=== PATIENT | female | born 1975 | race Caucasian/White ===

== ENCOUNTER 2021-03-17 09:24 | Outpatient (CLI) | payer OTHER, MEDICAID, SELFPAY ==
--- NOTE | 2021-03-17 09:30 | ASPOS_PTH ---
PATIENT: CATHY SORTO LOC: LAB U#:[id number] AGE/SX: 45/F ROOM: RE03/17/[address]: Dr. Rickey Batres MD : 1975 BED: DIS: 03/17/2021 SPEC #: [id number] RECD: 03/17/21 10:30 STATUS: KHRIS SALLY #: [id number] LUIS: 03/17/21 09:[address]: Rickey Batres DEPT: CYTOLOGY RECD BY: Arleth Olmstead ENTERED: 03/17/21 13:28 SP TYPE: ASP HERE OTHR DR: No Primary Care Phys Tissues: Neck, NOS Procedures: Surgery Specimen Level IV Cytology Other Fine Needle Asp on Site HEADER OPERATION: Fine needle aspiration right neck mass PRE-OP DIAGNOSIS: Right neck mass TISSUE SUBMITTED: Right neck mass DIAGNOSIS CYTOLOGY Fine needle aspiration, right neck mass (smears and cell block): Consistent with benign mixed tumor salivary gland. AM:sandra 03/18/2021 COMMENT The specimen is evaluated at the time of FNA by Dr. Almanza. Immediate Evaluation = Consistent with benign mixed tumor of salivary gland. CYTOLOGY STUDY Slides are reviewed. CYTOLOGY GROSS Received is 0.2 ml of light tang material labeled with the patient's name, and designated right neck mass. Two imprints are made from the submitted fluid and the rest is added to CytoLyt for cell block preparation. Submitted for cytology study. / AM:sandra 03/17/2021 TC:5 CPT: 26911, 27556, 58101, 76850
== END 2021-03-17 23:59 | disposition short-term general hospital (02) ==
LOC: LAB 09:32
PROVIDERS: Referring Provider Otolaryngology; Visit Provider Otolaryngology
DX: D36.7 Benign neoplasm of other specified sites (principal)
CPT/HCPCS: 10021; 88161; 88305

== ENCOUNTER 2021-03-30 13:14 | Outpatient (CLI) | payer OTHER, MEDICAID, SELFPAY ==
--- NOTE | 2021-03-30 13:18 | CT_ITS ---
STUDY: CT SOFT TISSUE NECK WITH CONTRAST REASON FOR EXAM: Female, 45 years old. RIGHT NECK MASS RADIATION DOSAGE (If Supplied By Facility): CTDIvol = ( 18.12 ) mGy, DLP = ( 461.69 ) mGycm TECHNIQUE: The patient was scanned in a multi-detector CT scanner. High resolution transaxial imaging was performed following intravenous administration of IV 75mL Isovue-370. Sagittal and coronal images were reconstructed. Individualized dose optimization techniques were used for this CT. COMPARISON: None. FINDINGS: Normal bilateral parotid glands. Normal bilateral production leader spaces. Normal bilateral parapharyngeal spaces. Normal bilateral carotid spaces. Heterogeneous appearance of the right submandibular gland. There is a 1.2 cm x 1.1 cm x 1.6 cm rounded hypodense nodule in the posterior inferior aspect of the right submandibular gland. This corresponds to the patient''s palpable abnormality. Normal visualized nasopharynx. Normal retropharyngeal space. Normal perivertebral space. Normal visualized bilateral faucial tonsils. The visualized tongue, tongue base and oropharynx are normal. There are minimally enlarged lymph nodes of the neck, with preservation of normal wai architecture, consistent with a reactive lymph hyperplasia. There is no demonstrated solid or cystic mass lesion. There is no abnormal contrast enhancement. Normal epiglottis, bilateral vallecula and hypopharynx. The pre-epiglottic and paraglottic adipose spaces are normal. Normal visualized bilateral piriform sinuses, aryepiglottic folds, vocal cords, and arytenoid-cricoid articulations. Normal subglottic trachea. Normal bilateral lobes of the thyroid gland. Normal visualized pulmonary apices. Normal visualized paranasal sinuses. There is multilevel degenerative changes of the cervical spine. CT/Soft Tissue Neck WITH Contrast IMPRESSION: The palpable abnormality corresponds a 1.2 cm x 1.1 cm x 1.6 cm hypodense rounded soft tissue mass in the inferior aspect of the right submandibular gland. Electronically Signed: Yovani Cage MD at 14:05 EST , Service support ,
== END 2021-03-30 23:59 | disposition short-term general hospital (02) ==
LOC: CT 13:15
PROVIDERS: Referring Provider Otolaryngology; Visit Provider Otolaryngology
DX: R22.1 Localized swelling, mass and lump, neck (principal)
CPT/HCPCS: 70491; Q9967

== ENCOUNTER 2021-05-30 10:18 | Day surgery (SDC) | payer OTHER, MEDICAID, SELFPAY ==
[2021-05-30] VITALS (8 sets, daily range): BP systolic 121–136; BP diastolic 78–108; PULSE 64–76; RESP 15–16; TEMP 36.2–37.4; O2SAT 98–100; BMI 28.5
--- NOTE | 2021-05-30 | SUBM_PTH ---
PATIENT: CATHY SORTO LOC: [facility] U#:[id number] AGE/SX: 45/F ROOM: RE05/30/[address]: Dr. Rickey Batres MD : 1975 BED: DIS: 05/30/2021 SPEC #: [id number] RECD: 05/30/21 14:27 STATUS: KHRIS SALLY #: [id number] LUIS: 05/30/21 00:[address]: Rickey Batres DEPT: SURGICAL PATHOLOGY RECD BY: Arleth Olmstead ENTERED: 05/31/21 08:18 SP TYPE: SUBMAN ALEXANDRE COREAS DR: No Primary Care Phys Tissues: Salivary gland, NOS Procedures: Surgery Specimen Level V HEADER OPERATION: Submandibular gland excision PRE-OP DIAGNOSIS: Right neck mass TISSUE SUBMITTED: Right submandibular gland MICROSCOPIC DIAGNOSIS Right submandibular gland, excision: Adenoid cystic carcinoma, cribriform and tubular pattern. Margins negative for carcinoma See comment and synoptic report below. AM:sandra 06/07/2021 COMMENT MA[employer]OR [employer] SUMMARY: Procedure ? resection, submandibular gland Tumor focality - unifocal Tumor site ? submandibular gland Specimen laterality - right Tumor site: Greatest dimension ? 2 cm Additional dimension ? 1.4 x 1.3 cm Pre-existing pleomorphic adenoma component ? not present. Histologic type: Adenoid cystic carcinoma, tubular and cribriform pattern. High grade transformation ? not identified Macroscopic tumor extent ? no evidence of extra-parenchymal extension. Lymphvascular invasion ? not identified Perineural invasion ? present Margin status ? all margins are negative for carcinoma. Exact distance ? 1.0 mm form surgical margin. Regional lymph nodes ? not applicable (no regional lymph nodes submitted or found). Additional findings ? none identified PATHOLOGIC STAGE: pT1 Nx Mx The above summary is in compliance with [employer] Path[employer] (CAP) Cancer Protocols Checklist and [place] Joint Committee on Cancer (AJCC), Staging Manual, 8th ed. The lesion measures 2 x 1.4 cm in greatest dimension and appears to be completely contained within the salivary gland. The tumor shows frequent perineural invasion. Angiolymphatic invasion is not identified. The inked margins of resection are free of tumor. Reference is made to the patient's previous fine needle aspiration ([id number]) in which changes of benign mixed salivary gland tumor were identified. This case is seen in consultation with Dr. Montes De Oca of [facility] who concurs with the diagnosis. The consultative report is viewable in patient?s EMR. Case has been reviewed in consultation with Dr. Guerrero who concurs with the above diagnosis. IDC:SJ MICROSCOPIC DESCRIPTION Slides are reviewed. GROSS DESCRIPTION Received in fixative is one container labeled with the patient's name and designated right submandibular gland. The specimen consists of a piece of glandular tissue measuring 4.5 x 3.5 x 1.5 cm and weighing 12.7 gm. Serial sections reveal a tang, solid nodular round mass measuring 2 x 1.4 x 1.3 cm. Sections of the rest of the tissue reveal unremarkable cut surfaces. Associate Account Executive sections are submitted in six cassettes. The tumor mass is submitted in entirety and present in cassettes 1-6. / SJ:sandra 05/31/2021 The remainder of the specimen is submitted in cassettes 7-10. / AM:sandra 06/01/2021 TC:0 CPT: 27284
[2021-05-30] MEDS: Lactated Ringers 1,000 ML 15 ML IV (10:58)
--- NOTE | 2021-05-30 12:14 | PCM.DC ---
Discharge Instructions Diet Discharge Diet: No restrictions Activity Discharge Activity: Return to Normal Activity Dressing / Incision Additional Dressing/Incision Instructions:: gauze on thiago drain as needed Follow Up Care Please Follow Up With: Venkata Batres MD When: sunday morning Test Results: Test results from this visit will be discussed in further detail at your follow-up appointment, if applicable. Discharge Plan Admission Attending Provider: Venkata Batres Primary Care Provider: Care Physician,Alejandra Primary Discharge Orders/Prescriptions Prescriptions: No Action naproxen sodium [Aleve] 220 mg Tablet 220 mg PO BID PRN (Reason: Pain) RF: 0 Disposition Discharge Orders: Discharge Patient (Routine); Ordered 05/30/21 Ordered By: Dr. Venkata Batres
[2021-05-30] MEDS: Lidocaine 1% /Epi 1:100 (50ml) 50 ML VIAL (12:35)
--- NOTE | 2021-05-30 14:03 | PCM.OPRPT ---
Problems Associated Problem List Diagnoses (1) Submandibular gland mass: Report of Operation Date of Procedure: 05/30/21 Pre-Operative Diagnosis: right submandibular gland mass Post-Operative Diagnosis: right submandibular gland mass Surgery/Procedure Performed:: excision right submandibular gland Surgeon: Venkata Batres storage management consultant: Scott Henson Type of Anesthesia: General Description of Procedure: on the day of the procedure, after appropriate informed consent was obtained, she was brought to the operating room and placed in supine position on the operating table. she was placed under general endotracheal anesthesia by the anesthesiologist. the endotracheal tube was secured, the eyes were taped. the right neck was injected with lidocaine/epinephrine. the neck was prepped / draped in sterile fashion. a 3cm incision was made 2cm inferior to the mandibular border with a 15 blade. the platysma was divided with the 15 blade. subplatysmal flaps were raised bluntly superiorly and inferiorly. the inferior border of the gland was incised and the fascia was lifted off of the gland. this was taken superiorly; the anterior belly of the digastric muscle and mylohyoid were identified. the gland was circumferentially dissected. the facial artery, vein and submandibular duct were all cut and ligated with 3-0 silk free ties. the lingual nerve was identified and preserved; contributions to the nerve were cut and ligated. the gland was removed. care was taken to not violate the well-circumscribed adenoma in the gland. the defect was irrigated and a thiago was placed. the incision was closed with 4-0 vicryl and 6-0 nylon. scott henson md was scrubbed for the entire procedure and was critical in its completion.
== END 2021-05-30 23:59 | disposition home or self-care (01) ==
LOC: SDC 10:18 → AC 10:23
PROVIDERS: Referring Provider Otolaryngology; Visit Provider Otolaryngology
PROC: (CPT 42440; principal; 2021-05-30 11:30)
DX: C08.0 Malignant neoplasm of submandibular gland (principal); F17.210 Nicotine dependence, cigarettes, uncomplicated
CPT/HCPCS: 42440; 00100; 88307; J7120; J2405

== ENCOUNTER 2021-07-01 12:36 | Outpatient (RCR) | payer OTHER, MEDICAID, SELFPAY | END 2021-07-09 23:59 | LOC: NS 12:36 | PROVIDERS: Referring Provider Student in an Organized Health Care Education/Training Program; Visit Provider Student in an Organized Health Care Education/Training Program | DX: Z71.3 Dietary counseling and surveillance (principal); C08.9 Malignant neoplasm of major salivary gland, unspecified | CPT/HCPCS: 97802 ==

== ENCOUNTER → 2021-07-06 | Outpatient (CLI) | payer OTHER, MEDICAID, SELFPAY ==
--- NOTE | 2021-07-06 11:39 | SP.MBSS_ITS ---
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 The patient is planned for radiation therapy for ~6.5 weeks. No plans for PEG tube placement at this time. Patient referred for speech consult to assess the patient for dysphagia and manage swallow function during radiation treatment. She was determined to have swallow function WNL at bedside swallow evaluation on 07/01/2021. Speech therapy was recommended to implement prophylactic oropharyngeal exercise program to maintain optimal swallow function during and after radiation treatment. The patient was referred for MBS study to establish baseline of swallow function and objectively assess risk for aspiration. The patient is at increased risk for dysphagia, aspiration, weight loss, and malnutrition when undergoing radiation treatment. Current Diet Ordered: Regular textures / Thin liquids Dentition: WNL Mental Status: WNL Respiratory Status: Oxygenating on Room Air - Penetration-Aspiration Scale Penetration-Aspiration Scale: OBJECTIVE ASSESSMENT OF SWALLOW FUNCTION (QUANTITATIVE ? PER TRIAL): PENETRATION / ASPIRATION SCALE (SUAREZ): 1 = does not enter airway 2 = enters airway/above vocal folds/ejected 3 = enters airway/above vocal folds/not ejected 4 = enters airway/contacts vocal folds/ejected 5 = enters airway/contacts vocal folds/not ejected 6 = enters airway/below vocal folds/ejected 7 = enters airway/below vocal folds/not ejected despite effort 8 = enters airway/below vocal folds/no effort VIDEOFLOROSCOPIC SCALE SCORE (SUAREZ): Grade I = aspiration of material that has penetrated into the laryngeal vestibule, intact cough reflex Grade II = aspiration < 10 % of the bolus, intact cough reflex Grade III = aspiration of < 10 % of the bolus, reduced cough reflex or aspiration of > 10 % of the bolus, intact cough reflex Grade IV = aspiration of > 10 % of the bolus, reduced cough reflex - Penetration-Aspiration Scale Score Thin Liquid via teaspoon Result: 1= does not enter airway Thin Liquid via teaspoon Trial 2 Result: 1= does not enter airway Thin Liquid via large single sip from cup Result: 1= does not enter airway Thin Liquid via sequential sips from cup Result: 1= does not enter airway Halfway Thick Liquid via small single sip from cup Result: 1= does not enter airway Honey Thick Liquid via small single sip from cup Result: 1= does not enter airway Pudding via teaspoon with esophageal screen Result: 1= does not enter airway Cookie with esophageal screen Result: 1= does not enter airway Thin Liquid via single sip from straw Result: 1= does not enter airway Thin Liquid via sequential sips from straw Double swallow Result: 1= does not enter airway - Oral Phase Labial Seal: No Labial Escape Tongue Control During Bolus Hold: Posterior escape of greater than half of bolus Bolus Preparation/Mastication: Timely and efficient chewing and mashing Bolus Transport/Lingual Motion: Delayed initiation of tongue motion Oral Residue: Trace residue lining oral structures - Pharyngeal Phase Initiation of Pharyngeal Swallow: Bolus head in pyriforms Soft Palate Elevation: No bolus between soft palate and pharyngeal wall Laryngeal Elevation: Partial superior movement thyroid cart/partial apprx aryt- epig petiole Anterior Hyoid Excursion: Partial anterior movement Epiglottic Movement: Complete inversion Laryngeal Vestibule Closure at Height of Swallow: Complete; no air/contrast in laryngeal vestibule Pharyngeal Stripping Wave: Present - complete Pharyngoesophageal Segment Opening: Parital distension and partial duration; parital obstruction of flow Tongue Base Retraction: Trace column of contrast between tongue base & post. pharyngeal wall Pharyngeal Residue: Collection of residue within or on pharyngeal structures - Esophageal Phase Esophageal Clearance: Esophageal retention w/ retrograde flow through pharyngoesophageal seg - Treatment Strategies Effects of treatment strategies attemped:: Double swallows = not effective to clear trace pharyngeal residue resulting from contrast retaining in upper esophagus with retrograde flow through UES. - Diagnosis/Impression Diagnosis: Mild oropharyngeal dysphagia (R13.12) Impression: The oral phase is marked by delayed initiation of tongue movement for swallow onset, as well as posterior loss of greater than half of the bolus to the pyriforms prior to swallow onset. This premature posterior loss of bolus was most evident with thin liquids. The pharyngeal phase is marked by mildly decreased anterior hyoid excursion and laryngeal elevation; however, the patient achieved excellent epiglottic inversion and airway closure during the swallow. No laryngeal penetration or aspiration observed during the study. She has decreased UES opening/duration resulting in retention of thin liquid bolus in the upper esophagus with retrograde flow through the UES after the swallow. She additionally presented with mild esophageal retention of pudding in mid esophagus. She had retention of cookie in distal esophagus with retrograde flow to mid esophagus. - Recommendations Diet: Regular Textures, Thin Liquids Compensatory Strategies: Small Bites, Small Sips, Slow Rate, Sitting upright, Remain sitting upright for 30 minutes after PO intake Recommend Repeat Modified Barium Swallow: Yes Need for Skilled Speech Therapy Services: Yes Recommended Referrals: GI Consult - Plan to discuss concerns for reflux with ordering physician, Dr. Medeiros. Consider the patient for future GI consult vs. management with reflux training and precautions. Education Completed: 1. Described result of evaluation. - Status Active ST Patient: Active - Contact Information [facility] Speech Therapy:: Camryn Vieira M.A. [facility]-C[facility]ER COORDINATOR Speech-Language Pathologist [facility] [address] [place] [address] [phone] 07/06/21 11:49
== END | disposition home or self-care (01) ==
LOC: RAD 09:25
PROVIDERS: Referring Provider Student in an Organized Health Care Education/Training Program; Visit Provider Student in an Organized Health Care Education/Training Program
DX: C08.9 Malignant neoplasm of major salivary gland, unspecified (principal)
CPT/HCPCS: 74230; 77301; 77338; 92611

== ENCOUNTER 2021-07-24 18:05 | Emergency (ER) | payer OTHER, MEDICAID, SELFPAY ==
[2021-07-24] VITALS (8 sets, daily range): BP systolic 89–129; BP diastolic 59–93; PULSE 67–104; RESP 12–21; TEMP 37.6; O2SAT 93–98; BMI 29.4
--- NOTE | 2021-07-24 18:46 | EX.ED.UPPERE ---
HPI History of Present Illness Chief Complaint: Upper Extremity Injury Detail of Chief Complaint: Injury to left wrist Informant: patient Narrative Narrative: Patient presents the emergency department for injury to the left wrist that occurred prior arrival to emergency department. Patient states that she was walking on an embankment when she lost her balance and when she try to brace herself with her left arm she heard a crack in her wrist. Patient is right-hand dominant. She denies any other injuries. PFSH PFS Medical History Alcohol use Anemia Heartburn History of edema History of fracture of left ankle Hx of spinal cord injury Hypertension Injury of back Loss of hearing Marijuana use Migraine headache Smoker Syncope Home Medications naproxen sodium [Aleve] 220 mg PO BID PRN 05/23/21 [History Last Taken Unknown] MAGIC MOUTH WASH (BMX) 180 mL suspension 15 ml PO .qid PRN #180 ml 07/20/21 [Rx Last Taken Unknown] gabapentin 300 mg capsule 300 mg PO TID #112 cap 07/20/21 [Rx Last Taken Unknown] hydrocodone-acetaminophen 1 tab PO Q4H PRN PRN 2 Days #15 tablet 07/24/21 [Rx Last Taken Unknown] Allergy/AdvReac Type Severity Reaction Status Date / Time adhesive tape Allergy Rash Verified 07/24/21 18:06 morphine AdvReac Vomiting Verified 07/24/21 18:06 MALT Allergy Anaphylaxis Uncoded 07/24/21 18:06 Family History Grandmother Hypertension Surgical History Hx of hysterectomy Social History Smoking Status: Current every day smoker tobacco type: cigarettes ROS ROS ED Constitutional Constitutional ED: Reports systems reviewed and no addt'l complaints, except as documented; Denies body ache(s), change in weight or chills Eyes Eyes: Denies acute decrease in peripheral vision, change in vision, double vision or loss of vision ENT ENT ED: Reports none; Denies ear pain, lip swelling, loss taste/smell, neck pain, otalgia or sore throat Cardiovascular Cardiovascular: Reports none; Denies abdominal pain, chest pain with activity, leg edema, lightheadedness, palpitations, rapid heart rate or syncope Respiratory/Chest Respiratory/Chest: Reports none; Denies change in mental status, dry cough, dyspnea, hemoptysis, shortness of breath at rest or shortness of breath with exertion Gastrointestinal Gastrointestinal: Reports none; Denies abdominal pain, change in stool character, diarrhea, hematemesis, hematochezia, melena, rectal bleeding or vomiting Genitourinary Genitourinary ED: Reports none; Denies abdominal discomfort, anuria, dysuria, genital pain or polyuria Musculoskeletal Musculoskeletal: Reports none and other Details: Left wrist pain/injury ; Denies arthralgias, back pain, difficulty walking, extremity pain, muscle weakness or myalgias Integumentary Reports none; Denies abscess or rash Neurologic Neurologic: Reports none; Denies abnormal gait, confusion, focal weakness, frequent falls, headache(s), loss of vision, numbness, paresthesias, radicular pain, vertigo or weakness Psychiatric Psychiatric: Reports systems reviewed and no addt'l complaints, except as documented and none; Denies behavioral changes, confusion, difficulty concentrating, hallucinations, suicidal ideation, tactile hallucinations or visual hallucinations Endocrine Endocrinology: Denies none, cold intolerance, excessive sweating, fatigue or heat intolerance Hematologic/Lymphatic Hematologic/Lymphatic: Reports none; Denies anemia, easy bleeding or easy bruising Allergic/Immunologic Allergic/Immunologic ED: Denies as per HPI, none, lip swelling, mouth swelling, throat swelling, tongue swelling or hives EXAM Physical Exam Const Vital Signs: 07/24/21 18:05 Temperature 99.7 F H Temperature Source Temporal Pulse Rate 104 H Respiratory Rate 18 Blood Pressure 129/78 H Blood Pressure Mean 95 Pulse Ox 97 Oxygen Delivery Method Room Air Positive well nourished and well developed General Appearance ED: well developed and NAD HEENT Reports TM's clear and moist mucous membranes normocephalic and atraumatic; Negative for trauma or tenderness Tympanic Membrane ED: Yes TM's clear Eyes PERRL and EOMs intact bilaterally General Eye ED: Negative for pale conjunctiva or scleral icterus Neck no lymphadenopathy, supple and no JVD General: Negative for tenderness Chest Wall inspection of chest normal and palpation of chest normal Chest: Negative for tenderness Resp normal respiratory effort and clear to auscultation bilaterally Effort and Inspection: Negative for respiratory distress or pain with movement Auscultation: Negative for rhonchi, wheezes or diminished lung sounds Cardio regular rate, regular rhythm, S1 normal heart sound, S2 normal heart sound and no murmurs Peripheral Pulses: pulses 2+ throughout GI normal to inspection, nondistended, normoactive bowel sounds, soft to palpation, non-tender, non-distended and no masses Back/Spine no CVA tenderness and no thoracic nor lumbar tenderness Extremity Extremity Narrative: Evaluation of the left wrist reveals diffuse soft tissue swelling. Patient has tenderness over the distal radius. There are some faint ecchymosis. She is neurovascular intact distally. No pain at the elbow. No pain at the hand. General Extremety ED: Negative for edema General Extremity: Negative for edema Neuro oriented x3, CN's II-XII intact bilaterally, no sensory deficits noted and gait normal Sensorium / Orientation: awake, alert, oriented to person, oriented to place and oriented to time Motor Exam: strength 5/5 throughout and strength abnormal Psych mental status grossly normal Skin no rashes or lesions noted and no wounds MDM MDM MDM Narrative Medical decision making narrative: Patient had x-rays of the right wrist initially interpreted by myself as a fracture of the distal radius with some mild displacement and loss of volar tilt. I discussed case with orthopedic surgeon on-call Dr. Menard who recommended attempting to reduce this further. Patient had an IV line established and was medicated with Dilaudid 1 mg IV. She was consented for procedural sedation with propofol. Patient received a total of 140 mg of propofol with good sedation. I was able to reduce the fracture further and splint the patient. Post reduction films obtained interpreted by myself as improved alignment and reduction. Official report from radiology pending. Patient was placed in a AP splint fabricated by myself. Total sedation time of 20 minutes. Patient was placed in a sling. Patient will be given a prescription for [place] for pain. She is to follow-up with Dr. Menard in the office in 3 to 5 days. Patient neurovascularly intact after splint placement. Lab Data Attestation: I reviewed the patient's lab results. Discharge Plan Triage Chief Complaint: Upper Extremity Injury ED Provider: Dillan Stephens Dx/Rx/DC Orders Clinical Impression: Colles' fracture of left radius Instructions: ED Colles Fracture, Reduction Required Prescriptions: New hydrocodone-acetaminophen [hydrocodone-acetaminophen] 1 TABLET tablet 1 tab PO Q4H PRN PRN (Reason: Pain) 2 Days Qty: 15 RF: 0 No Action gabapentin 300 mg capsule 300 mg PO TID Qty: 112 RF: 5 MAGIC MOUTH WASH (BMX) 180 mL suspension 15 ml PO .qid PRN (Reason: mucositis) Qty: 180 RF: 5 naproxen sodium [Aleve] 220 mg Tablet 220 mg PO BID PRN (Reason: Pain) RF: 0 Primary Care Provider: Care Physician,No Primary Referrals: Dontrell Menard MD [STAFF PHYSICIAN] - 3-5 Days Care Physician,No Primary [Primary Care Provider] - Disposition Disposition: Home, Self Care
--- NOTE | 2021-07-24 18:50 | RAD_ITS ---
INDICATION: injury EXAMINATION/TECHNIQUE: X-RAY - LEFT XR Wrist Min 3 Views 3 VIEWS COMPARISON: None. FINDINGS: SOFT TISSUES: No soft tissue swelling or gas. No radiopaque foreign body. BONES/JOINTS: Minimally impacted and minimally dorsally angulated fracture of the distal radius. Articular surfaces appear intact. Carpal rows are intact. The distal radial ulnar joint also appears to be intact. RAD/Wrist min 3 Views IMPRESSION: 1. Impacted minimally angulated distal radial fracture. Joint spaces are maintained. 2. No other fractures noted. Electronically Signed: Jai Rosales MD at 20:03 EDT ,
[2021-07-24] MEDS: HYDROmorphone 1 MG/ML Syringe IV ×2 (19:43→20:50)
[2021-07-24] MEDS: Ondansetron 4 MG/2 ML Vial IV (19:43)
[2021-07-24] MEDS: Propofol 200 MG/20 ML Vial IV BOLUS (20:41)
--- NOTE | 2021-07-24 21:00 | RAD_ITS ---
INDICATION: post reduction EXAMINATION/TECHNIQUE: X-RAY - LEFT XR Wrist Min 3 Views 6 VIEWS COMPARISON: Left wrist x-rays from earlier the same evening. FINDINGS: SOFT TISSUES: Soft tissue swelling. No radiopaque foreign body. BONES/JOINTS: Again seen extra-articular, transverse fracture distal radial metaphysis with interval decrease in the loss of normal volar tilt of the distal radius now with near anatomic alignment. Preservation of the joint space and no degenerative bony proliferative changes. No sclerotic or destructive changes observed. RAD/Wrist min 3 Views IMPRESSION: Again seen extra-articular, transverse fracture distal radial metaphysis with interval decrease in the loss of normal volar tilt of the distal radius now with near anatomic alignment. Electronically Signed: Jaden Graf DO at 22:28 EDT ,
== END 2021-07-24 21:55 | disposition home or self-care (01) ==
PROVIDERS: Emergency Provider Emergency Medicine; Visit Provider Emergency Medicine
DX: S52.532A Colles' fracture of left radius, initial encounter for closed fracture (principal); I10 Essential (primary) hypertension; F17.210 Nicotine dependence, cigarettes, uncomplicated; W17.81XA Fall down embankment (hill), initial encounter; Y93.01 Activity, walking, marching and hiking
CPT/HCPCS: 25600; 73110; 96374; 96375; 96376; 99284; J7030; A4216; J2405

== ENCOUNTER → 2021-12-12 | Outpatient (CLI) | payer OTHER, MEDICAID, SELFPAY ==
--- NOTE | 2021-12-12 13:32 | SP.MBSS_ITS ---
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 The patient underwent radiation therapy for ~6.5 weeks.?Baseline MBS completed 07/06/21 which revealed mild oropharyngeal dysphagia (R13.12) w/ recommendation for regular textures/thin liquids, small bites/sips, slow rate, seated upright during and for 30 minutes after intake. The patient reports that her saliva production has returned to normal and that she is eating and drinking without difficulty. Odynophagia has resolved w/ the exception of spicy food consumption. Dysgeusia has resolved w/ the exception of chocolate consumption. Denies completion of any prophylactic swallowing exercises, stating that her saliva has returned and she is regularly swallowing. Current Diet Ordered: Regular Textures/Thin Liquids Dentition: WNL Mental Status: WNL Respiratory Status: Oxygenating on Room Air - Penetration-Aspiration Scale Penetration-Aspiration Scale: OBJECTIVE ASSESSMENT OF SWALLOW FUNCTION (QUANTITATIVE ? PER TRIAL): PENETRATION / ASPIRATION SCALE (SUAREZ): 1 = does not enter airway 2 = enters airway/above vocal folds/ejected 3 = enters airway/above vocal folds/not ejected 4 = enters airway/contacts vocal folds/ejected 5 = enters airway/contacts vocal folds/not ejected 6 = enters airway/below vocal folds/ejected 7 = enters airway/below vocal folds/not ejected despite effort 8 = enters airway/below vocal folds/no effort VIDEOFLOROSCOPIC SCALE SCORE (SUAREZ): Grade I = aspiration of material that has penetrated into the laryngeal vestibule, intact cough reflex Grade II = aspiration < 10 % of the bolus, intact cough reflex Grade III = aspiration of < 10 % of the bolus, reduced cough reflex or aspiration of > 10 % of the bolus, intact cough reflex Grade IV = aspiration of > 10 % of the bolus, reduced cough reflex - Penetration-Aspiration Scale Score Thin Liquid via teaspoon Result: 1= does not enter airway Thin Liquid via teaspoon Trial 2 Result: 1= does not enter airway Thin Liquid via small single sip from cup Result: 1= does not enter airway Thin Liquid via sequential sips from cup Result: 2= enter airway/above vocal folds/ejected Thin Liquid via single sip from straw Result: 1= does not enter airway Pudding Result: 1= does not enter airway Cookie Result: 1= does not enter airway Thin Liquid via small single sip from cup Trial 2 Result: 1= does not enter airway - Oral Phase Labial Seal: No Labial Escape Tongue Control During Bolus Hold: Cohesive bolus between tongue to palatal seal Bolus Preparation/Mastication: Timely and efficient chewing and mashing Bolus Transport/Lingual Motion: Delayed initiation of tongue motion Oral Residue: Trace residue lining oral structures - Pharyngeal Phase Initiation of Pharyngeal Swallow: Bolus head in pyriforms Soft Palate Elevation: No bolus between soft palate and pharyngeal wall Laryngeal Elevation: Partial superior movement thyroid cart/partial apprx aryt- epig petiole Anterior Hyoid Excursion: Partial anterior movement Epiglottic Movement: Complete inversion Laryngeal Vestibule Closure at Height of Swallow: Complete; no air/contrast in laryngeal vestibule Pharyngeal Stripping Wave: Present - complete Pharyngoesophageal Segment Opening: Complete distension and complete duration; no obstruction of flow Tongue Base Retraction: Trace column of contrast between tongue base & post. pharyngeal wall Pharyngeal Residue: Trace residue within or on pharyngeal structures - Esophageal Phase Esophageal Clearance: Esophageal retention - Diagnosis/Impression Diagnosis: mild oropharyngeal dysphagia (R13.12) Impression: The oral phase is characterized by: * delayed initiation of lingual motion for swallow onset * spillage of liquids to the aryepiglottic folds and/or pyriform sinuses prior to swallow onset The pharyngeal phase is characterized by: * delayed pharyngeal swallow onset w/ the leading edge of liquid boluses reaching the aryepiglottic folds and/or pyriform sinuses prior to swallow onset * reduced anterior hyoid movement * laryngeal vestibule penetration occurred w/ sequential swallows of thin liquid only w/ pharyngeal spillage and penetration occurring prior to swallow onset * penetration was above the vocal folds and laryngeal vestibule closure was sufficient to eject the penetration from the vestibule The esophageal phase is characterized by: * trace retention of contrast below the PES without retrograde bolus flow * screening for esophageal clearance was unremarkable Diet Recommended: * Regular Texture (IDDSI: 7) * Thin Liquid (IDDSI: 0) Compensatory Strategies Recommended: * Small bites * Small sips, avoiding sequential intake of liquids * Slow rate of intake * Sit upright w/ hip flexion at 90 degrees during PO intake? * Remain seated upright for 30-60 minutes after PO intake (GERD precautions) Additional Speech Therapy Services Recommended: * Patient able to comprehend and express understanding of recommended intake precautions detailed above with sufficient detail to suggest high likelihood of compliance. No further skilled speech-language services warranted at this time targeting dysphagia. Repeat MBS Recommended: * Recommend repeat MBS in 6-12 months. - Recommendations Education Completed: 1. Described result of evaluation., 2. Pt understands evaluation & agrees with goals and treatment plan. - Status Active ST Patient: Active - Contact Information [facility] Speech Therapy:: Minal Hurtado M.A., CCC-DIRECTOR TARGETED MARKETING [facility] [address] [place], [place] [id number] [phone] [email or web address]
== END | disposition home or self-care (01) ==
LOC: RAD 12:49
PROVIDERS: PCP Internal Medicine; Referring Provider Student in an Organized Health Care Education/Training Program; Visit Provider Student in an Organized Health Care Education/Training Program
DX: C08.9 Malignant neoplasm of major salivary gland, unspecified (principal)
CPT/HCPCS: 74230; 92611

== ENCOUNTER 2021-12-13 10:12 | Outpatient (RCR) | payer OTHER, MEDICAID, SELFPAY ==
--- NOTE | 2021-12-13 12:48 | HP.OTEVAL_ITS ---
Patient's Visit Information CATHY SORTO is a 46 year old F, referred to Occupational Therapy by Dr. Mauri Medeiros DO, with a diagnosis of lymphedema. Date of Evaluation: 12/13/21 Occupational Therapist: Melissa Quiroga, OTR/Derik, CHT - Subjective This 46 year old female was seen for OT eval with dx of lymphedema, H&N Lymphedema s/p parotidectomty and adjuvant radiation therapy. pt was had her initial sx May 29. June dx with cancer - Radiation July and completed 33 visits-. pt reports swelling in right side of her face and neck-initiated about 3-4 weeks. pt states more uncomfortable in morning and almost painful-. pt would like to know what she can dot to mtg. her swelling on the right side of her chin/neck. - Pain neck/face 3 - Goals Demonstrate a 20% reduction in edema by d/c: Yes Demonstrate adequate knowledge of self-massage by 2nd week: Yes Demonstrate adequate knowledge skin care/prec by 2nd week: Yes Demonstrate adequate knowledge therapeutic exercises by d/c: Yes Select approp compression garment w/donning/care/wear by d/c: Yes Voice need to replace compression garment every 4-6mo by dc: Yes - Rehabilitation General Assessment: s/p parotidectomy and adjuvant radiation -pt arrives with swelling on right side of jaw line and chin- pt would benefit from skilled OT services 2-3 visits to ed. pt on life long mtg of lymphedema, self manual lymph massage, compression devices and exercise. Pt would benefit from home flexitouch unit to ensure lymphatic drainage. Rehabilitation Potential: Good - Anticipated Interventions Education re Diagnosis, Manual Lymph Drainage, Education re Life-long lymphedema Management, Education re Skin Care and Precautions, Education re Self Massage Techniques, Education re Correct Donning Tech,Care&Wearing Sched Comp Garments, Caregiver Training, Home Program - Visit Plan TEXT: Thank you for the opportunity to evaluate your patient. For Medicare and Medicare HMO plans, please review the plan of care and approve it. It will need to be FAXED BACK to us at [phone] for Medicare purposes. Please let me know if there are questions or concerns regarding this plan of care. Physician Signature: Date:
--- NOTE | 2022-02-09 12:47 | HP.OT.NRP ---
CATHY SORTO was seen in my office for initial evaluation on 12/13/21. The following Plan of Care was established for this patient: Anticipated Interventions: Education re Diagnosis, Manual Lymph Drainage, Education re Life-long lymphedema Management, Education re Skin Care and Precautions, Education re Self Massage Techniques, Education re Correct Donning Tech,Care&Wearing Sched Comp Garments, Caregiver Training, Home Program This patient was last seen in our office 12/13/21. Pertinent comments regarding their Occupational therapy will appear below: pt was seen for initial OT eval only- no further apts. scheduled at this time and due to time lapse in services pt d/c. At this point I will be discontinuing this patient from occupational therapy. I would be happy to see this patient again in the future if found appropriate by the physician. Thank you! Melissa Quiroga, OTR/L, CHT
== END 2021-12-13 19:00 | disposition home or self-care (01) ==
LOC: OT 10:12
PROVIDERS: PCP Internal Medicine; Referring Provider Student in an Organized Health Care Education/Training Program; Visit Provider Student in an Organized Health Care Education/Training Program
DX: I89.0 Lymphedema, not elsewhere classified (principal)
CPT/HCPCS: 97166; 97530

== ENCOUNTER → 2021-12-22 | Outpatient (CLI) | payer OTHER, MEDICAID, SELFPAY ==
--- NOTE | 2021-12-22 12:06 | BI_ITS ---
MAMMOGRAPHY - BILATERAL SCREENING REASON FOR EXAM: Female, 46 years old. Routine annual screening examination. PERTINENT HISTORY: Non-contributory. Occasional bilateral green nipple discharge. TECHNIQUE: Digital bilateral breast ejsús (3D mammographic acquisition) in the CC and MLO projections. 2-D mediolateral oblique (MLO) and craniocaudad (CC) views of both breasts were obtained. CAD: Full Field Digital Mammography with Computer Added Detection was performed. COMPARISON: None. Baseline examination. FINDINGS: Breast Composition: There are scattered areas of fibroglandular density. There are no dominant masses or suspicious calcifications. No other significant abnormalities are identified. BI/SCRN MAMM (CAD)W/JESÚS BILAT IMPRESSION: Negative screening mammogram. Yearly followup mammogram recommended. (A) ASSESSMENT CATEGORY: BIRADS Category 1: Negative. A letter regarding these results will be sent to the patient by the facility within 30 days. Approximately 10% of breast cancers are not detected by mammography. A normal mammogram should not delay biopsy of a clinically suspicious abnormality. [id number] Electronically Signed: Yovani Cage MD at 12:44 EDT ,
== END | disposition home or self-care (01) ==
PROVIDERS: PCP Internal Medicine; Visit Provider Internal Medicine
DX: Z12.31 Encounter for screening mammogram for malignant neoplasm of breast (principal); N64.52 Nipple discharge
CPT/HCPCS: 77063; 77067

== ENCOUNTER → 2022-04-21 | Outpatient (CLI) | payer BC, SELFPAY ==
[2022-04-21 15:08] LABS: Absolute Lymphocyte Count 1.19 X10^3/uL (0.83-4.51); Basophil# 0.05 X10^3/uL; Eosinophil# 0.09 X10^3/uL; Eosinophils% 1.8 % (0-5); Hematocrit 42.6 % (37-47); Hemoglobin 13.4 g/dL (12.0-15.0); Lymphocyte # 1.19 X10^3/ul (0.83-4.51); Lymphocyte % 23.4 % (19-41); Mean Corp Hgb Conc 31.5 g/dL (32-36); Mean Corpuscular Hgb 31.6 pg (27.0-32.0); Mean Corpuscular Volume 100.5 fL (81-99); Mean Platelet Vol. 10.9 fl (6.2-12.0); Monocyte# 0.72 X10^3/uL; Monocyte% 14.1 % (0-10); NRBC Flagged by Analyzer 0 % (0-5); Neutrophil # 3.03 X10^3/uL (2.7-7.7); Neutrophil % 59.5 % (47-70); Platelet Count 207 K/mm3 (150-450); RBC Distribution Width CV 13.3 % (11.6-14.6); RBC Distribution Width SD 49.2 fl (35.1-43.9); Red Blood Count 4.24 M/mm3 (4.2-5.4); White Blood Count 5.1 K/mm3 (4.4-11.0)
[2022-04-21 15:38] LABS: ALB/GLOB Ratio 1.1 RATIO (0.9-2.4); AST(SGOT) 31 U/L (15-37); Alanine Aminotransfer ALT/SGPT 40 U/L (13-56); Albumin, Serum 3.8 g/dL (3.2-5.0); Alkaline Phosphatase 65 U/L (45-117); Anion Gap 6 (5-15); BUN 12 mg/dL (7-18); BUN/Creat Ratio 15.2 RATIO (10-20); Calcium,Total 8.6 mg/dL (8.5-10.1); Chloride 109 mmol/L (98-107); Cholesterol 209 mg/dL (200); Creatinine, Serum 0.79 mg/dL (0.55-1.02); EST Glomerular Filtration Rate 83 mL/min (>60); Est Glom Filt Rate - Afr Amer 100 mL/min (>60); Globulin 3.5 g/dL (2.2-4.2); Glucose 78 mg/dL (74-106); High Density Lipoprotein 91 mg/dL; Potassium 4.2 mmol/L (3.5-5.1); Protein, Total 7.3 g/dL (6.4-8.2); Sodium Level 141 mmol/L (136-145); Thyroid Stim Hormone (TSH) 1.56 uIU/mL (0.358-3.74); Triglycerides 58 mg/dL; Very Low Density Lipoprotein 12 mg/dL (5-40)
== END | disposition home or self-care (01) ==
LOC: BIMLAB 11:59
PROVIDERS: PCP Internal Medicine; Referring Provider Internal Medicine; Visit Provider Internal Medicine
DX: C08.9 Malignant neoplasm of major salivary gland, unspecified (principal); R12 Heartburn; Z13.6 Encounter for screening for cardiovascular disorders
CPT/HCPCS: 36415; 80053; 80061; 84443; 85025

== ENCOUNTER → 2022-11-27 | Outpatient (CLI) | payer BC, SELFPAY ==
--- NOTE | 2022-11-27 13:38 | ST.MBS ---
Modified Barium Swallow Patient Information Study Date: 11/27/22 Study Time: 13:00 Direct Billable Minutes: 80 Total Minutes procedure & reportin Diagnosis: Adenoid Cystic Carsinoma of Salivary Gland (C08.9) Referring Physician: Mauri Medeiros Reason for Referral: Repeat MBS recommended to objectively assess swallow function, risk for aspiration, and determine recommendations for least restrictive diet textures and compensatory strategies to improve safety of swallow. 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 The patient underwent radiation therapy for ~6.5 weeks.?Baseline MBSS completed 07/06/21 which revealed mild oropharyngeal dysphagia (R13.12) w/ recommendation for regular textures/thin liquids, small bites/sips, slow rate, seated upright during and for 30 minutes after intake. Most recent MBSS completed 12/12/21 which again revealed mild oropharyngeal dysphagia w/ recommendation for regular textures and thin liquids, small bites/sips, avoiding sequential intake of liquids, slow rate of intake, and seated upright during and for 30 minutes after intake. Patient reports very mild xerostomia which is only bothersome if trying to eat dry crackers. Denies any odynophagia, dysgeusia, difficulty chewing/swallowing or recent PNA since prior MBSS. Pt reports that she completes neck stretches most mornings. Current Diet Ordered: Regular/Thin Dentition: WNL Mental Status: WNL Respiratory Status: Oxygenating on Room Air Penetration-Aspiration Scale Penetration-Aspiration Scale: OBJECTIVE ASSESSMENT OF SWALLOW FUNCTION (QUANTITATIVE ? PER TRIAL): PENETRATION / ASPIRATION SCALE (SUAREZ): 1 = does not enter airway 2 = enters airway/above vocal folds/ejected 3 = enters airway/above vocal folds/not ejected 4 = enters airway/contacts vocal folds/ejected 5 = enters airway/contacts vocal folds/not ejected 6 = enters airway/below vocal folds/ejected 7 = enters airway/below vocal folds/not ejected despite effort 8 = enters airway/below vocal folds/no effort VIDEOFLOROSCOPIC SCALE SCORE (SUAREZ): Grade I = aspiration of material that has penetrated into the laryngeal vestibule, intact cough reflex Grade II = aspiration < 10 % of the bolus, intact cough reflex Grade III = aspiration of < 10 % of the bolus, reduced cough reflex or aspiration of > 10 % of the bolus, intact cough reflex Grade IV = aspiration of > 10 % of the bolus, reduced cough reflex Penetration-Aspiration Scale Score Thin Liquid via teaspoon: Result: 1= does not enter airway Thin Liquid via teaspoon Trial 2: Result: 1= does not enter airway Thin Liquid via cup: Result: 2= enter airway/above vocal folds/ejected Thin liquid sequential swallows via cup: Result: 2= enter airway/above vocal folds/ejected Thin Liquid via single sip from straw: Result: 1= does not enter airway Pudding: Result: 1= does not enter airway Cookie: Result: 1= does not enter airway Thin liquid via cup Trial 2: Result: 1= does not enter airway Oral Phase Labial Seal: No Labial Escape Tongue Control During Bolus Hold: Cohesive bolus between tongue to palatal seal Bolus Preparation/Mastication: Timely and efficient chewing and mashing Bolus Transport/Lingual Motion: Slowed tongue motion Oral Residue: Trace residue lining oral structures Pharyngeal Phase Initiation of Pharyngeal Swallow: Bolus head in pyriforms Soft Palate Elevation: No bolus between soft palate and pharyngeal wall Laryngeal Elevation: Partial superior movement thyroid cart/partial apprx aryt-epig petiole Anterior Hyoid Excursion: Partial anterior movement Epiglottic Movement: Complete inversion Laryngeal Vestibule Closure at Height of Swallow: Complete; no air/contrast in laryngeal vestibule Pharyngeal Stripping Wave: Present - complete Pharyngoesophageal Segment Opening: Complete distension and complete duration; no obstruction of flow Tongue Base Retraction: Trace column of contrast between tongue base & post. pharyngeal wall Pharyngeal Residue: Trace residue within or on pharyngeal structures Esophageal Phase Esophageal Clearance: Esophageal retention Diagnosis/Impression Diagnosis: Mild oropharyngela dysphagia (R13.12) Impression: The oral phase is characterized by: -adequate labial seal w/ no anterior bolus loss -good bolus cohesion w/out loss to floor of mouth or posteriorly during cued oral holding -mildly slowed lingual motion for A-P bolus transportation The pharyngeal phase is characterized by: -suboptimal bolus location upon swallow onset w/ leading edge of liquid boluses reaching the pyriforms prior to swallow onset -reduced anterior hyoid movement and thyroid elevation -transient laryngeal vestibule penetration before/during the swallow w/ complete ejection/complete laryngeal vestibule closure at the height of swallow -trace pyriform residue retention post-prandially The esophageal phase is marked by: -esophageal retention of contrast noted when screening for clearance Swallow function remains essentially unchanged since prior MBSS in 2021. Recommendations Diet: Regular Textures and Thin Liquids Compensatory Strategies: Small Bites, Small Sips, Sitting upright and Remain sitting upright for 30 minutes after PO intake Recommend Repeat Modified Barium Swallow: Yes Comment: Recommend a repeat MBSS in 12 months. Need for Skilled Speech Therapy Services: No Education Completed: 1. Described result of evaluation. and 2. Pt understands evaluation & agrees with goals and treatment plan. Status Active ST Patient: Active Contact Information [facility] Speech Therapy:: Minal Hurtado M.A., CCC-ASSOCIATE SALES REPRESENTATIVE Speech-Language Pathologist [facility] [address] [place] [address] [email or web address] [phone]
== END | disposition home or self-care (01) ==
LOC: RAD 12:54
PROVIDERS: PCP Internal Medicine; Referring Provider Student in an Organized Health Care Education/Training Program; Visit Provider Student in an Organized Health Care Education/Training Program
DX: C08.9 Malignant neoplasm of major salivary gland, unspecified (principal)
CPT/HCPCS: 74230; 92611

== ENCOUNTER → 2023-01-03 | Outpatient (CLI) | payer BC, SELFPAY ==
[2023-01-03 14:50] LABS: Bacteria 0 SEEN /hpf (None Seen); Mucous, Urine 0 SEEN /hpf (<or=2+); Red Blood Cells-Urine 0 SEEN /hpf (0-5); White Blood Cells 0 SEEN /hpf (0-5)
[2023-01-03 17:34] LABS: Color, Urine Yellow (Yellow); Glucose, Dipstick Normal (Normal); Ketone-Dipstick Negative (Negative); Leukocyte Esterase-Dipstick Negative /ul (Negative); Nitrite-Dipstick Negative (Negative); Occult Blood-Urine Negative /ul (Negative); Protein-Dipstick Negative (Negative); Specific Gravity, Urine 1.015 (1.002-1.030); Urine Bilirubin Dipstick Negative (Negative); Urine Clarity Clear (Clear); Urine Urobilinogen Normal (Normal)
[2023-01-03 17:39] LABS: Absolute Lymphocyte Count 0.96 X10^3/uL (0.83-4.51); Absolute Neutrophil Count 3.5 X10^3/uL (2.0-7.7); Basophil# 0.03 X10^3/uL; Basophil% 0.6 % (0-1); Eosinophil# 0.05 X10^3/uL; Hematocrit 42.5 % (37-47); Lymphocyte # 0.96 X10^3/ul (0.83-4.51); Lymphocyte % 18.4 % (19-41); Mean Corp Hgb Conc 30.6 g/dL (32-36); Mean Corpuscular Hgb 31.7 pg (27.0-32.0); Mean Corpuscular Volume 103.7 fL (81-99); Mean Platelet Vol. 11.4 fl (6.2-12.0); Monocyte# 0.72 X10^3/uL; Monocyte% 13.8 % (0-10); NRBC Flagged by Analyzer 0 % (0-5); Neutrophil # 3.45 X10^3/uL (2.7-7.7); Neutrophil % 65.8 % (47-70); Platelet Count 209 K/mm3 (150-450); RBC Distribution Width CV 13.1 % (11.6-14.6); RBC Distribution Width SD 50.4 fl (35.1-43.9); White Blood Count 5.2 K/mm3 (4.4-11.0)
[2023-01-03 18:07] LABS: AST(SGOT) 21 U/L (15-37); Alanine Aminotransfer ALT/SGPT 46 U/L (13-56); Albumin, Serum 3.6 g/dL (3.2-5.0); Alkaline Phosphatase 63 U/L (45-117); Anion Gap 6 (5-15); BUN 12 mg/dL (7-18); BUN/Creat Ratio 13.7 RATIO (10-20); CPK Total, Creatine Kinase 102 U/L (26-192); Calcium,Total 8.9 mg/dL (8.5-10.1); Chloride 108 mmol/L (98-107); Creatinine, Serum 0.88 mg/dL (0.55-1.02); EST Glomerular Filtration Rate 73 mL/min (>60); Est Glom Filt Rate - Afr Amer 88 mL/min (>60); Globulin 3.7 g/dL (2.2-4.2); Glucose 75 mg/dL (74-106); Magnesium 2.2 mg/dL (1.6-2.6); Potassium 3.5 mmol/L (3.5-5.1); Protein, Total 7.3 g/dL (6.4-8.2); Sodium Level 141 mmol/L (136-145)
[2023-01-03 18:28] LABS: Squamous Epithelial Cells - UA 0-5 SEEN /hpf (5-10)
[2023-01-04 10:05] LABS: Vitamin B12 240 pg/mL (211-911); Vitamin D,25 Hydroxy 14.8 ng/mL
== END | disposition home or self-care (01) ==
LOC: BIMLAB 14:48
PROVIDERS: PCP Internal Medicine; Referring Provider Internal Medicine; Visit Provider Internal Medicine
DX: D75.89 Other specified diseases of blood and blood-forming organs (principal); R25.2 Cramp and spasm; R10.9 Unspecified abdominal pain
CPT/HCPCS: 36415; 80053; 81001; 82306; 82550; 82607; 82746; 83735; 85025

== ENCOUNTER → 2023-01-18 | Outpatient (CLI) | payer BC, SELFPAY ==
--- NOTE | 2023-01-18 10:34 | BI_ITS ---
MAMMOGRAPHY - BILATERAL SCREENING REASON FOR EXAM: Female, 47 years old. Routine annual screening examination. PERTINENT HISTORY: Non-contributory. TECHNIQUE: Digital bilateral breast jesús (3D mammographic acquisition) in the CC and MLO projections. 2-D mediolateral oblique (MLO) and craniocaudad (CC) views of both breasts were obtained. CAD: Full Field Digital Mammography with Computer Added Detection was performed. COMPARISON: Comparison is made with prior study December 22, 2021. FINDINGS: Breast Composition: There are scattered areas of fibroglandular density. There are no dominant masses or suspicious calcifications. Stable small benign-appearing bilateral axillary lymph nodes. No other significant abnormalities are identified. There has been no significant change since the prior study. BI/SCRN MAMM (CAD)W/JESÚS BILAT IMPRESSION: Stable bilateral screening mammogram. Yearly follow-up mammogram recommended. (A) ASSESSMENT CATEGORY: BIRADS Category 2: Benign. A letter regarding these results will be sent to the patient by the facility within 30 days. Approximately 10% of breast cancers are not detected by mammography. A normal mammogram should not delay biopsy of a clinically suspicious abnormality. [id number] Electronically Signed: Yovani Cage MD at 11:58 EST ,
== END | disposition home or self-care (01) ==
LOC: OPBI 10:33
PROVIDERS: PCP Internal Medicine; Referring Provider Internal Medicine; Visit Provider Internal Medicine
DX: Z12.31 Encounter for screening mammogram for malignant neoplasm of breast (principal)
CPT/HCPCS: 77063; 77067

== ENCOUNTER 2023-03-19 12:24 | Day surgery (SDC) | payer BC, SELFPAY ==
--- NOTE | 2023-03-19 12:29 | HP.PCM_ITS ---
[facility] - General General Date of Service: 03/19/23 HPI Senthil SORTO, is a 47 F who presents for screening. Patient never had previous colonoscopy. Patient has a family history of colon cancer. Patient denies any chronic abdominal pain/nausea/vomiting. Patient does have reflux which she takes omeprazole 40 mg p.o. daily for and patient states she has been on that for years denies any symptoms on the medication. Patient is never had an EGD. [facility] Medical History (Updated 03/15/23 @ 13:20 by Dede Andrade) Alcohol use Anemia Arthritis Cancer Gastric reflux History of edema History of fracture of left ankle History of renal disease History of steroid therapy Hx of spinal cord injury Hypertension Injury of back Left radial fracture Leg cramps Loss of hearing Marijuana use Migraine headache Shortness of breath on exertion Smoker Syncope Thrush, oral Home Medications naproxen sodium 220 mg tablet (Aleve) 220 mg PO PRN PRN Pain 05/23/21 [History Last Taken Unknown] omeprazole 40 mg capsule,delayed release 40 mg PO DAILY 03/15/23 [History Last Taken Unknown] Allergy/AdvReac Type Severity Reaction Status Date / Time adhesive tape Allergy Rash Verified 03/15/23 13:09 Food Allergies: Uncoded Allergy Anaphylaxis Verified 03/15/23 13:09 morphine AdvReac Vomiting Verified 03/15/23 13:09 Family History Grandmother Hypertension Aunt Lupus Aunt Lupus Aunt Lupus Other Migraine Surgical History (Updated 03/15/23 @ 13:20 by Dede Andrade) History of spinal surgery History of surgery on lower extremity History of surgical procedure Hx of hysterectomy Social History household members: spouse current occupational status: employed current occupation: [employer] Smoking Status: Former smoker quit date: 12/10/21 pack-years: 15 Electronic Cigarette Use: not used alcohol intake: current alcohol intake frequency: a few times a week substance use type: marijuana what type of physical activity do you participate in: none do you feel safe at home: Yes Past Medical/Surgical History Planned Operation Planned Operative Procedure/s: CSCOPE OA Previous Hospitalizations/Surgeries HX Hospitalizations: No Any Problems With Anesthesia: No You/Your Family Experience Fever (Hyperthermia) With Anes: No Cholinesterase deficiency: No Cardiovascular Hx of Irregular Heartbeat and/or Afib: No Hx Heart Attack: No Hx Congestive Heart Failure: No Hx Hypertension: Yes (NO MEDS FOR 10 YRS) Hx Pacemaker: No Respiratory Hx Chronic Obstructive Pulmonary Disease (COPD): No Hx Asthma: No Hx Emphysema: No Hx Sleep Apnea: No CPAP: No Hx Respiratory Tract Infection/Cold (presently): Yes (PINK EYE/TREATED/RESOLVED) Do You Snore Loudly (louder than talking or can be heard): No Do You Often Feel Tired/ Fatigued/ Sleepy Dring Daytime?: No Has Anyone Observed You Stop Breathing During Sleep?: No Result (for STOP score): Negative Hx Smoking: Yes (1/2 pack per day) Smoking Status: Former smoker Gastrointestinal Hx Ulcer: No Special diet followed at home: No Neurological Hx Seizures: No Hx Head/Neck Injury: No Hx Headaches: No Hx Back Injury/Pain: No Does patient have nerve stimulator: No Reproduction : No Miscellaneous Recent Exposure to Contagious Disease: No Allergies adhesive tape Allergy (Verified 03/15/23 13:09) Rash Food Allergies: Uncoded Allergy (Verified 03/15/23 13:09) Anaphylaxis Malt morphine Adverse Reaction (Verified 03/15/23 13:09) Vomiting Discharge Is Pt Admitted From a Prison, or a [facility]: No After D/C, Where Do you Plan to Go: Return Home Physical Exam Const alert, oriented x3 and no apparent distress HEENT normocephalic and head/scalp atraumatic Resp normal respiratory effort Cardio regular rate GI soft to palpation and non-tender; Negative for non-distended Palpation: Negative for guarding Extremity no clubbing, cyanosis or edema Skin no rashes or lesions noted Neuro CN's II-XII intact bilaterally Psych mental status grossly normal Assessment & Plan Assessment/Plan (1) Encounter for screening for malignant neoplasm of colon: Surgery Risks - Colonoscopy I discussed with the patient the risks of the procedure: Yes Risks Include but are not Limited To: Risks include but are not limited to: Bleeding, perforation requiring further surgery, inability to complete colonoscopy requiring barium enema.
--- OUTSIDE RECORDS SUMMARY | 2023-03-19 12:33 | XMS RPT_ITS | CCD ---
Author Name Unknown Address [address] [place] [address] Organization [facility] Care Team Providers Care Ruby Engineer Name Role Phone Mya Atkinson Unavailable Unavailable Mya Atkinson Unavailable Unavailable Scott Hernandez Unavailable Unavailable Nile Godoy Unavailable Scott Hernandez Primary Care Provider Renaldo Uribe Unavailable MYA GUAJARDO Admitting Unavailable MYA GUAJARDO Attending Unavailable NO, DOCTOR ON Referring Unavailable MYA GUAJARDO Primary Care Unavailable NO, DOCTOR ON Consulting Unavailable Allergies Allergy Classification Reported Allergen(s) Allergy Type Date of Onset Reaction(s) Facility (2 sources) Adhesive agent; Translations: [Adhesive] Propensity to adverse reactions to drug (disorder) [facility] Repository (4 sources) morphine; Translations: [Morphine] Drug Allergy 0 Nausea and Vomiting [facility] Repository (1 source) *Adhesive Tape Propensity to adverse reactions 3 Hives, Blisters [facility] Medications Current Medications Medication Drug Class(es) Dates Sig (Normalized) Sig (Original) Albuterol (1 source) beta2-Adrenergic Agonist take 2 puff(s) by inhalation four times daily as needed Albuterol Sulfate (PROAIR HFA IN) Indications: Primary localized osteoarthrosis, ankle and foot take 2 puffs by inhalation 4 times daily as needed. 1010/14-always in am. 0 Active amitriptyline hydrochloride 75 mg oral tablet (1 source) Tricyclic Antidepressant take 1 tablet by mouth at bedtime amitriptyline 75 MG Tab Indications: Primary localized osteoarthrosis, ankle and foot take 1 tablet by mouth at bedtime. 0 Active Aspirin-Acetaminophe n-Caffeine (EXCEDRIN PO) (1 source) Aspirin-Acetamin oph en-Caffeine (EXCEDRIN PO) Indications: Primary localized osteoarthrosis, ankle and foot take 2 tablets by mouth as needed. 0 Active SUMAtriptan 100 mg oral tablet (1 source) Serotonin-1b and Serotonin-1d Receptor Agonist take 1 tablet by mouth once daily as needed sumatriptan (IMITREX) 100 MG PO TABS Indications: Primary localized osteoarthrosis, ankle and foot take 1 Tab by mouth daily as needed. 0 Active Completed/Discontinued Medications Medication Drug Class(es) Dates Sig (Normalized) Sig (Original) iohexol (OMNIPAQUE) 180 MG/ML IJ SOLN (4 sources) Start: 06-26-2011 End: 09-25-2011 iohexol (OMNIPAQUE) 180 MG/ML IJ SOLN Indications: Primary localized osteoarthrosis, ankle and foot Injected perispinal 1 Vial 0 06/26/2011 09/25/2011 Discontinued Problems Active Problems Problem Classification Problem Date Documented Date Episodic/Chronic Anxiety disorders (1 source) Anxiety; Translations: [Anxiety and depression] 12-19-2013 Chronic Asthma (1 source) Asthma; Translations: [Asthma] 12-20-2013 Chronic Esophageal disorders (1 source) Gastroesophageal reflux disease; Translations: [GERD (gastroesophageal reflux disease)] 12-19-2013 Chronic Essential hypertension (1 source) Hypertensive disorder; Translations: [HTN (hypertension)] 12-20-2013 Chronic Headache; including migraine (1 source) Migraine; Translations: [Migraine] 12-19-2013 Chronic Nausea and vomiting (1 source) Postoperative nausea and vomiting; Translations: [PONV (postoperative nausea and vomiting)] 12-20-2013 Episodic Osteoarthritis (1 source) Localized, primary osteoarthritis of the ankle and/or foot; Translations: [Primary localized osteoarthrosis, ankle and foot] Onset: 06-23-2009 06-23-2009 Chronic Other circulatory disease (1 source) Poor venous access; Translations: [Difficult intravenous access] 12-20-2013 Episodic Other connective tissue disease (1 source) Pain in lower limb; Translations: [Chronic leg pain] 12-19-2013 Episodic Other connective tissue disease (2 sources) Pain in left forearm; Translations: [Pain in left forearm] Onset: 10-29-2018 Episodic Other nutritional; endocrine; and metabolic disorders (1 source) Obesity, unspecified; Translations: [Obesity (BMI 30.0-34.9)] 12-19-2013 Chronic Other screening for suspected conditions (not mental disorders or infectious disease) (2 sources) Encounter for screening for malignant neoplasm of colon; Translations: [Encounter for screening for malignant neoplasm of colon] Onset: 12-13-2021 Episodic Residual codes; unclassified (1 source) Tobacco use; Translations: [Tobacco use] Onset: 10-29-2018 Episodic Skin and subcutaneous tissue infections (1 source) Cutaneous abscess of left upper limb; Translations: [Cutaneous abscess of left upper limb] Onset: 10-29-2018 Episodic Substance-related disorders (2 sources) Smoker; Translations: [Other stimulant use, unspecified, uncomplicated] Onset: 10-29-2018 12-20-2013 Chronic Past or Other Problems Problem Classification Problem Date Documented Da te Episodic/Chronic Spondylosis; intervertebral disc disorders; other back problems (1 source) Backache; Translations: [Back pain] Onset: 01-03-2014 01-03-2014 Episodic Results Test Name Value Interpretation Reference Range Facil ity Encounters Encounter Date Encounter Type Care Provider Facility Start: 12-13-2021 ambulatory Facility:[facility] Start: 10-29-2018 End: 10-29-2018 Emergency department patient visit MYACINTIA GUAJARDO [facility] Start: 06-09-2016 End: 06-10-2016 Patient encounter Mya Atkinson Facility:[facility] Start: 08-09-2011 End: 08-09-2011 Patient encounter procedure Capri Gonzalez [facility] Plan of Treatment Date Care Activity Detail Author Start: 11-10-2017 Influenza vaccination INFLUENZA VACC INE (#1) [facility] Start: 2014 Fasting lipid profile LIPID SCREENIN G [facility] Start: 2014 Protein mass conc MAMMOGRAM SC REENING DISCUSSION [facility] Start: 06-04-1995 Screening for malign ant neoplasm of cervix PAP SMEAR DISCUSSION [facility] Start: 1993 Third diphtheria, tetanus and acellular pertussis (DTaP) vaccination TDAP (ADULT) [facility] Start: 1992 Tetanus vaccination TETANUS [facility] Start: 06-04-1987 HIV screening HIV SCREENING DISCUSSION [facility] Immunizations Immunization Date Immunization Notes Care Provider Guera mayorga 06-26-2011 Bupivacaine Inj Capri Hartig [facility] 06-26-2011 Lidocaine 1% Inj Capri Hartig [facility] 06-26-2011 Triamcinolone Aceton arlette Inj Capri Hartig [facility] 06-05-2011 Bupivacaine Inj Capri Hartig [facility] 06-05-2011 Lidocaine 1% Inj [facility] 06-05-2011 Triamcinolone Aceton arlette Inj Capri Hartig [facility] 05-22-[address] [facility] 05-22-2011 Lidocaine 1% Inj Capri [facility] 05-22-2011 Triamcinolone Aceton arlette Inj Capri Hartig [facility] 05-15-2011 Bupivacaine Inj Capri Hartig [facility] 05-15-2011 [facility] Triamcinolone Aceton arlette Inj Capri [facility] Payers Date Payer Category Payer Unknown [id number] 2016 Unknown 2011 Unknown [facility] xxxxxxxxxxxx 2011-Present xxxxxxxxxxxx [id number] 1975 Unknown [id number] 1975 Unknown [id number] Medicaid [id number] Social History Date Type Detail Facility Start: 06-28-2011 [facility] Current [facility] day smoker [facility] History of tobacco use Cigarette Smoker [facility] Start: 06-28-2011 Cigarettes smoked current (pack per day) - Reported [facility] Sex Assigned At Not on file [facility] Medical Equipment Procedure Code Equipment Code Equipment Origin al Text Equipment Identifier Dates Locking Screw [id number] Sta rt: 01-24-2011 Locking Screw [id number] Sta rt: 01-24-2011 Locking Screw [id number] Sta rt: 01-24-2011 Locking Screw [id number] Sta rt: 01-24-2011 Locking Screw [id number] Sta rt: 01-24-2011 Locking Screw [id number] Sta rt: 01-24-2011 Locking Screw [id number] Sta rt: 01-24-2011 Locking Screw [id number] Sta rt: 01-24-2011 [id number] Ankle Arthrodesis Nail Start: 01-24-2011 [id number] Ankle Arthrodesis Nail Start: 01-24-2011 Compression Scre w Cannulated Start: 01-24-2011 Compression Scre w Cannulated Start: 01-24-2011 [id number] Locking Screw Sta rt: 01-24-2011 [id number] Locking Screw Sta rt: 01-24-2011 [id number] Locking Screw Sta rt: 01-24-2011 [id number] Locking Screw Sta rt: 01-24-2011 Trial Lead Kit 60mm Start : 12-08-2011 Trial Lead Kit 60mm Start : 12-08-2011 Lead Kit 60 Cm Start: 04-12-2012 Lead Kit 60 Cm Start: 04-12-2012 Ornelas Lock [place] Start: 04-12-2012 Ornelas Lock [place] Start: 04-12-2012 16 Channel Rechargable Start: 04-12-2012 16 Channel Rechargable Start: 04-12-2012 Mini Le Charging System Start: 04-12-2012 Mini Le Charging System Start: 04-12-2012 Patient Train Operations Supervisor Start: 04-12-2012 Patient Train Operations Supervisor Start: 04-12-2012 Lead Start: 01-02-2014 Lead Start: 01-02-2014 Battery Start: 01-02-2014 Battery Start: 01-02-2014 Progress note 04-12-2020 Note Date & Type Note Facility 04-12-2020 Note HNO ID: [id number] Author: Wilma More (Rt) Madelin Espinal Service: ? Author Type: Senior Controller Type: Progress Notes Filed: 04/12/2020 7:10 PM Note Text: Radiology Service Progress Note PATIENT NAME: Cathy Pitt DATE OF SERVICE: April 12, 2020 TIME: 7:00 PM PATIENT IDENTITY VERIFICATION COMPLETED USING TWO (2) IDENTIFIERS: Name and Date of confirmed by patient verbally. FALL SCREENING: Has the patient had 2 falls in the last year or 1 fall with injury or currently using an Ambulatory Assistive Device (Walker, Cane, Wheelchair, Crutches, etc.)? No PATIENT GENDER DATA: Female. status: : No status: NO. PATIENT RELEVANT IMPLANT DATA REVIEWED: Yes RADIOLOGY DEPARTMENT: General X-ray: Exam(s) Completed: Lower Extremity X-Ray(s): Foot, Left: PERIPHERAL IV DATA: Not applicable SIGNED BY: RT Abdelrahman April 12, 2020 7:00 PM [facility] Progress note 04-12-2020 Note Date & Type Note Facility 04-12-2020 Note HNO ID: [id number] Author: June Messer Service: ? Author Type: Nurse Practitioner Type: Progress Notes Filed: 04/12/2020 8:00 PM Note Text: Subjective 44 year old female with PMH HTN presents with left foot pain. Acute onset of symptoms was last Sunday, denies known trauma or injury. States she works 12 hours shifts on her feet, states up and down stairs. Denies fever or chills. Denies redness. Denies numbness or tingling from baseline (states 4th and 5th are numb at all times). Denies skin rash or lesions. Endorses that she has had reconstructive surgery of left foot with titanium rods through [facility] (2010) related to fractures. States feels like there is a crack in there The history is provided by the patient. No scrap drop crane operator was used. Foot Trauma This is a new problem. The current episode started in the past 7 days. The problem occurs constantly. The problem has been unchanged. Pertinent negatives include no abdominal pain, anorexia, arthralgias, change in bowel habit, chest pain, chills, congestion, coughing, diaphoresis, fatigue, fever, headaches, joint swelling, myalgias, nausea, neck pain, numbness, rash, sore throat, swollen glands, urinary symptoms, vertigo, visual change, vomiting or weakness. The symptoms are aggravated by standing, walking and twisting. She has tried NSAIDs for the symptoms. The treatment provided mild relief. No past medical history on file. PAST SURGICAL HISTORY Procedure Laterality Date - HYSTERECTOMY HX 2003 ALLERGIES Morphine MEDICATIONS amitriptyline (ELAVIL) 75 mg tablet Take by mouth daily at bedtime. citalopram (CELEXA) 40 mg tablet Take 40 mg by mouth once daily. Omeprazole (PRILOSEC) 40 mg capsule Take 40 mg by mouth once daily. topiramate (TOPAMAX) 50 mg tablet Take 50 mg by mouth twice daily. SUMAtriptan (IMITREX) 100 mg tablet Take 100 mg by mouth as needed. ASPIRIN/ACETAMINOPHEN/CAFFEINE (EXCEDRIN MIGRAINE ORAL) Take by mouth. No family history on file. Social History Tobacco Use - Smoking status: Current Every Day Smoker - Smokeless tobacco: Never Used Substance Use Topics - Alcohol use: No - Drug use: Yes Types: Marijuana Review of Systems Constitutional: Negative for chills, diaphoresis, fatigue and fever. HENT: Negative for congestion and sore throat. Respiratory: Negative for cough. Cardiovascular: Negative for chest pain. Gastrointestinal: Negative for abdominal pain, anorexia, change in bowel habit, nausea and vomiting. Musculoskeletal: Negative for arthralgias, joint swelling, myalgias and neck pain. +left foot pain Skin: Negative for rash. Neurological: Negative for dizziness, vertigo, tingling, weakness, numbness and headaches. BP 118/88 Pulse 95 Temp 36.8 ?C (98.2 ?F) (Left Tympanic) Resp 16 Wt 95.5 kg (210 lb 9.6 oz) SpO2 96% Objective Physical Exam Constitutional: She is oriented to person, place, and time and well-developed, well-nourished, and in no distress. HENT: Head: Normocephalic and atraumatic. Right Ear: External ear normal. Left Ear: External ear normal. Mouth/Throat: Oropharynx is clear and moist. Eyes: Pupils are equal, round, and reactive to light. Conjunctivae and EOM are normal. Right eye exhibits no discharge. Left eye exhibits no discharge. No scleral icterus. Neck: No tracheal deviation present. No thyromegaly present. Cardiovascular: Normal rate, regular rhythm and normal heart sounds. Exam reveals no gallop and no friction rub. No murmur heard. Pulmonary/Chest: Effort normal and breath sounds normal. No respiratory distress. She has no wheezes. She has no rales. She exhibits no tenderness. Abdominal: Soft. Bowel sounds are normal. She exhibits no distension. There is no abdominal tenderness. Musculoskeletal: General: No tenderness, deformity or edema. Normal range of motion. Cervical back: Normal range of motion and neck supple. Feet: Lymphadenopathy: She has no cervical adenopathy. Neurological: She is alert and oriented to person, place, and time. GCS score is 15. Skin: Skin is warm and dry. No rash noted. No erythema. No pallor. Psychiatric: Mood, affect and judgment normal. Nursing note and vitals reviewed. ASSESSMENT/PLAN: 1. Foot pain, left - ICD9: 729.5, ICD10: M79.672 No trauma or injury - XR FOOT GENERAL 3V AP/LAT/OBL LT-negative for acute process RICE therapy Provided post op shoe - CONSULT TO PODIATRY for follow up, patient to call. June Messer APRN.[employer] [facility] Summary Purpose Family History No Family History Records FoundNo Family History Records FoundNo Family History Records FoundNo Family History Records FoundNo Family History Records Found Advance Directives No Advanced Directives Records FoundLatest Code Status on File Code Status Date Activated Date Inactivated Comments Full Code 01/02/2014 10:29 AM 01/05/2014 3:07 PM Full Code 01/27/2011 6:43 AM 01/02/2014 10:29 AM 12/10/2009 10:17 AM 01/27/2011 6:43 AM Tra nsitioned information that was previously in this comment section to the Specialty Comments in [employer]. This field is being deactivated due to decision by [facility] Implementation Committee. 06/23/2009 12:46 PM 12/10/2009 10:17 AM pre fered pharmacy: [facility] [phone] Additional Source Comments INFORMATION SOURCE (unrecogn ized section and content) DATE CREATED AUTHOR AUTHOR'S ORGANIZ ATION 11/08/2018 [facility] DATE CREATED AUTHOR AUTHOR'S ORGANIZ ATION [facility] DATE CREATED AUTHOR AUTHOR'S ORGANIZ ATION 04/10/2021 [facility] DATE CREATED AUTHOR AUTHOR'S ORGANIZ ATION 12/18/2021 [facility] Reason for Visit (unrecogniz ed section and content) FOR RECORDS PERTAINING TO PATIENTS WHO ARE OR HAVE BEEN ENROLLED IN A CHEMICAL DEPENDENCY/SUBSTANCEABUSE PROGRAM, SOME INFORMATION MAY BE OMITTED. This clinical summary was aggregated from multiple sources. Caution should be exercised in using it in the provision of clinical care. This summary normalizes information from multiple sources, and as a consequence, information in this document may materially change the coding, format and clinical context of patient data. In addition, data may be omitted in some cases. CLINICAL DECISIONS SHOULD BE BASED ON THE PRIMARY CLINICAL RECORDS. [employer] provides no warranty or guarantee of the accuracy or completeness of information in this document.
[2023-03-19 13:00] VITALS: BP 123/95; PULSE 70; RESP 16; TEMP 36.4; O2SAT 100; BMI 28.1
[2023-03-19] MEDS: Lactated Ringers 1,000 ML 15 ML IV (13:04)
--- NOTE | 2023-03-19 13:30 | COLBX_PTH ---
PATHOLOGY RESULTS PATIENT: CATHY SORTO LOC: EN U#:[id number] AGE/SX: 47/F ROOM: RE03/19/[address]: Dr. Neha Palm MD : 1975 BED: DIS: 03/19/2023 SPEC #: [id number] RECD: 03/20/23 08:10 STATUS: KHRIS SALLY #: [id number] LUIS: 03/19/23 13:[address]: Neha Palm DEPT: SURGICAL PATHOLOGY RECD BY: Sharda Roberts ENTERED: 03/20/23 08:10 SP TYPE: COLON BX OTHR DR: Dr. Ashely Steven MD Tissues: Sigmoid colon biopsy Procedures: Surgery Specimen Level IV HEADER OPERATION: Colonoscopy - open access with biopsy PRE-OP DIAGNOSIS: Screening TISSUE SUBMITTED: Sigmoid colon polyp biopsy MICROSCOPIC DIAGNOSIS Sigmoid colon polyp, biopsy: Fragments of colonic mucosa, no pathologic diagnosis. SJ:sandra 03/21/2023 MICROSCOPIC DESCRIPTION Slides are reviewed. GROSS DESCRIPTION Received in fixative is one container labeled with the patient's name and designated sigmoid colon polyp. The specimen consists of multiple irregular fragments of light tang soft tissue that in aggregate measure 1.2 x 0.3 x 0.1 cm. The specimen is totally submitted in one cassette. / SJ:rg 03/20/2023 TC:4 CPT: 57146
--- NOTE | 2023-03-19 14:08 | OP.CCLET_ITS ---
03/19/2023 Ashely Steven Md Re : Colonoscopy procedure for Kira Biswas Dear Maurizio This procedure was performed on Sunday, March 19, 2023. My impressions and recommendations are as follows: Impressions : - Three less than 5 mm polyps in the sigmoid colon, removed with a cold biopsy forceps. Resected and retrieved. - The examination was otherwise normal on direct and retroflexion views. Recommendations : - Discharge patient to home. - Resume previous diet. - Continue present medications. - Await pathology results. - Repeat colonoscopy in 5-10 years for surveillance based on pathology results. My findings are described in the full procedure note, which is enclosed. If I can be of further assistance, please feel free to contact me at Doctor phone number(s): , Work: . Sincerely, MD Neha Almaguer MD 03/19/2023 2:07:32 PM This report has been signed electronically.
--- NOTE | 2023-03-19 14:08 | OP.COLON_ITS ---
Patient Name: Kira Biswas Procedure Date: 03/19/2023 1:19 PM Date of : 1975 Age: 47 Procedure: Colonoscopy Indications: Screening for colorectal malignant neoplasm Providers: Neha Palm MD Medicines: Monitored Anesthesia Care Patient Profile: This is a 47 year old female. Last Colonoscopy: none. The patient's first colonoscopy is today. Complications: No immediate complications. Procedure: Pre-Anesthesia Assessment: - Prior to the procedure, a History and Physical was performed, and patient medications and allergies were reviewed. The patient's tolerance of previous anesthesia was also reviewed. The risks and benefits of the procedure and the sedation options and risks were discussed with the patient. All questions were answered, and informed consent was obtained. Prior Anticoagulants: The patient has taken no anticoagulant or antiplatelet agents. ASA Grade Assessment: Per anesthesia. After reviewing the risks and benefits, the patient was deemed in satisfactory condition to undergo the procedure. After I obtained informed consent, the scope was passed under direct vision. Throughout the procedure, the patient's blood pressure, pulse, and oxygen saturations were monitored continuously. The Colonoscope was introduced through the anus and advanced to the cecum, identified by appendiceal orifice and ileocecal valve. The colonoscopy was performed without difficulty. The patient tolerated the procedure well. The quality of the bowel preparation was good. Scope In: 1:42:16 PM Scope Withdrawal Time 0 hours 11 minutes 39 seconds Scope Out: 2:01:52 PM Total Procedure Duration Time 0 hours 19 minutes 36 seconds Findings: The perianal and digital rectal examinations were normal. Three sessile polyps were found in the sigmoid colon. The polyps were less than 5 mm in size. These polyps were removed with a cold biopsy forceps. Resection and retrieval were complete. The exam was otherwise without abnormality on direct and retroflexion views. Impression: - Three less than 5 mm polyps in the sigmoid colon, removed with a cold biopsy forceps. Resected and retrieved. - The examination was otherwise normal on direct and retroflexion views. Recommendation: - Discharge patient to home. - Resume previous diet. - Continue present medications. - Await pathology results. - Repeat colonoscopy in 5-10 years for surveillance based on pathology results. Procedure Code(s): --- Professional --- 49145, PT, Colonoscopy, flexible; with biopsy, single or multiple Diagnosis Code(s): --- Professional --- Z12.11, Encounter for screening for malignant neoplasm of colon D12.5, Benign neoplasm of sigmoid colon CPT copyright 2021 [employer]. All rights reserved. The codes documented in this report are preliminary and upon immigration paralegal review may be revised to meet current compliance requirements. MD Neha Almaguer MD 03/19/2023 2:07:32 PM This report has been signed electronically. Number of Addenda: 0 Note Initiated On: 03/19/2023 1:19 PM
[2023-03-19 14:10] VITALS: BP 112/81; BP 123/95; PULSE 81; RESP 16; TEMP 36.4; O2SAT 95
[2023-03-19 14:15] VITALS: BP 105/79; BP 123/95; PULSE 78; RESP 16; O2SAT 100
[2023-03-19 14:20] VITALS: BP 109/86; BP 123/95; PULSE 70; RESP 16; O2SAT 99
[2023-03-19 14:26] VITALS: BP 112/85; BP 123/95; PULSE 65; RESP 16; TEMP 36.3; O2SAT 100
[2023-03-19 14:44] VITALS: BP 123/95
--- NOTE | 2023-03-19 14:58 | SUR.PHASEII ---
Patient mentioned area on right arm above/ proximal to IV site. IV now removed. Slight red/white blotchy skin assessed. No itchiness, no raised area. No infiltration. Educated patient on histamine response and encourage patient to keep an eye on site.
== END 2023-03-19 15:00 | disposition home or self-care (01) ==
LOC: EN 12:25 → AC 12:26
PROVIDERS: PCP Internal Medicine; Referring Provider Internal Medicine; Visit Provider Surgery
PROC: 0DJD8ZZ Inspection of Lower Intestinal Tract, Via Natural or Artificial Opening Endoscopic (ICD-10-PCS; CPT 45378; principal; 2023-03-19 13:25)
DX: Z12.11 Encounter for screening for malignant neoplasm of colon (principal); K21.9 Gastro-esophageal reflux disease without esophagitis; Z80.0 Family history of malignant neoplasm of digestive organs; I10 Essential (primary) hypertension; Z87.891 Personal history of nicotine dependence; F12.90 Cannabis use, unspecified, uncomplicated; D12.5 Benign neoplasm of sigmoid colon
CPT/HCPCS: 45380; 88305; J7120; J2405

== ENCOUNTER → 2024-05-22 | Outpatient (CLI) | payer BC, SELFPAY ==
[2024-05-22 18:29] LABS: Absolute Neutrophil Count 2.6 X10^3/uL (2.0-7.7); Basophil# 0.03 X10^3/uL; Basophil% 0.7 % (0-1); Eosinophil# 0.07 X10^3/uL; Eosinophils% 1.6 % (0-5); Hematocrit 39.2 % (37-47); Hemoglobin 12.9 g/dL (12.0-15.0); Mean Corp Hgb Conc 32.9 g/dL (32-36); Mean Corpuscular Hgb 32.8 pg (27.0-32.0); Mean Corpuscular Volume 99.7 fL (81-99); Monocyte# 0.68 X10^3/uL; Monocyte% 15.6 % (0-10); NRBC Flagged by Analyzer 0 % (0-5); Neutrophil # 2.56 X10^3/uL (2.7-7.7); Neutrophil % 58.9 % (47-70); Platelet Count 181 K/mm3 (150-450); RBC Distribution Width CV 13.3 % (11.6-14.6); RBC Distribution Width SD 48.9 fl (35.1-43.9); Red Blood Count 3.93 M/mm3 (4.2-5.4); White Blood Count 4.4 K/mm3 (4.4-11.0)
[2024-05-22 21:14] LABS: ALB/GLOB Ratio 1.4 RATIO (0.9-2.4); AST(SGOT) 42 U/L (<=31); Alanine Aminotransfer ALT/SGPT 53 U/L (<=34); Albumin, Serum 4.4 g/dL (3.5-5.0); Alkaline Phosphatase 71 U/L (35-104); Anion Gap 12 (5-15); BUN 11 mg/dL (4-19); BUN/Creat Ratio 13.9 RATIO (10-20); Calcium,Total 9.8 mg/dL (7.6-11.0); Carbon Dioxide 23.2 mmol/L (21.0-32.0); Chloride 104 mmol/L (98-108); Cholesterol 226 mg/dL (<=200); Creatinine, Serum 0.82 mg/dL (0.70-1.20); EST Glomerular Filtration Rate 88 (>60); Globulin 3.1 g/dL (2.2-4.2); Glucose 93 mg/dL (70-99); High Density Lipoprotein 100 mg/dL; Low Density Lipoprotein Calc. 110 mg/dL; Potassium 4.4 mmol/L (3.3-5.1); Protein, Total 7.5 g/dL (5.9-8.4); Sodium Level 139 mmol/L (133-145); Total Bilirubin 0.72 mg/dL (0.00-1.30); Triglycerides 80 mg/dL; Very Low Density Lipoprotein 16 mg/dL (5-40); Vitamin B12 327 pg/mL (180-914); Vitamin D,25 Hydroxy 17.3 ng/mL (30-100); cholesterol:hdl ratio screen 2.26
== END | disposition home or self-care (01) ==
LOC: BIMLAB 15:37
PROVIDERS: PCP Internal Medicine; Referring Provider Internal Medicine; Visit Provider Internal Medicine
DX: R12 Heartburn (principal); C08.9 Malignant neoplasm of major salivary gland, unspecified; E78.2 Mixed hyperlipidemia; Z92.3 Personal history of irradiation; E56.9 Vitamin deficiency, unspecified
CPT/HCPCS: 36415; 80053; 80061; 82306; 82607; 84443; 85025

== ENCOUNTER → 2024-09-04 | Outpatient (CLI) | payer BC, SELFPAY | END | disposition home or self-care (01) | PROVIDERS: PCP Internal Medicine; Referring Provider Internal Medicine; Visit Provider Internal Medicine | DX: Z92.3 Personal history of irradiation (principal) | CPT/HCPCS: 36415; 84443 ==

== ENCOUNTER 2024-09-16 06:49 | Emergency (ER) | payer BC, SELFPAY ==
[2024-09-16 06:49] VITALS: BP 183/117; PULSE 76; RESP 20; TEMP 36.7; O2SAT 100; BMI 29.2
--- NOTE | 2024-09-16 07:20 | EKG12_ITS ---
Test Reason : HTN Blood Pressure : */* mmHG Vent. Rate : 63 BPM Atrial Rate : 63 BPM P-R Int : 194 ms QRS Dur : 76 ms QT Int : 402 ms P-R-T Axes : 45 0 20 degrees QTcB Int : 411 ms Normal sinus rhythm Normal ECG Confirmed by HILDA FUENTES, GENNY ([id number]), editorial cartoonist VINITA MCDUFFIE ([id number]) on 09/18/2024 6:38:56 AM Referred By: Confirmed By: GENNY STEVENS MD
--- NOTE | 2024-09-16 07:20 | CT_ITS ---
PROCEDURE: BRAIN/HEAD WITHOUT CONTRAST 09/16/2024 REASON FOR EXAM: HEADACHE TECHNIQUE: BRAIN/HEAD WITHOUT CONTRAST Coronal and Sagittal reconstruction series were provided. One or more dose reduction techniques were used (e.g., Automated exposure control, adjustment of the mA and/or kV according to patient size, use of iterative reconstruction technique. RADIATION DOSE SUMMARY: CTDlvol: 44.99 mGy DLP: 796.11 mGycm COMPARISON: None FINDINGS: Brain: Within normal limits for age. Punctate calcifications in the basal ganglia bilaterally. This is normal for patient's age. CSF Spaces: Normal Sinuses/Mastoids: Clear at visualized levels Bones: Unremarkable CT/Brain/Head without Contrast IMPRESSION: NORMAL NONCONTRAST HEAD CT. Reading Location: [facility]
--- NOTE | 2024-09-16 07:27 | EX.ED.DYSGE1 ---
HPI History of Present Illness Chief Complaint: Hypertension Informant: patient Narrative Narrative: Patient is a 49-year-old female with remote history of hypertension (states she has not been on any blood pressure medication in years and her blood pressure is usually completely normal), salivary gland carcinoma (treated) presenting with elevated blood pressure, headache and malaise. Patient states the past few days she has felt like her head does not been clear. She was not feeling good at work yesterday checked her blood pressure it is 157/110. She checked her blood pressure later in the evening and higher. States this morning she woke up she was feeling very shaky, felt hot and disoriented. States she was struggling to breathe but when asked to describe she states she had to think and concentrate on taking her breath. She states she is currently not having a difficult time breathing. Denies any chest pain, numbness or tingling. States has been eating and drinking well. Denies any changes or photophobia. States she has been having normal bowel movements denies any nausea or vomiting. Denies any urinary symptoms. Came in for further evaluation. No other complaints or concerns at this time. Denies any recent diet changes, new supplements or change in caffeine intake. States over the last year she has had a 5 pound weight gain concerns at this time. [facility] Medical History History of steroid therapy Cancer Arthritis History of renal disease Shortness of breath on exertion Leg cramps Gastric reflux Left radial fracture Thrush, oral Hx of spinal cord injury Loss of hearing Alcohol use Marijuana use Anemia Injury of back Migraine headache Hypertension Syncope Smoker History of edema History of fracture of left ankle Home Medications ?Medication ?Instructions ?Recorded ?Last Taken ?Type naproxen sodium 220 mg tablet 220 mg PO PRN PRN Pain 05/23/21 Unknown History (Aleve) cyclobenzaprine 5 mg tablet 5 mg PO TID PRN muscle spasm #15 05/22/24 Unknown Rx tabs omeprazole 40 mg capsule,delayed 40 mg PO DAILY #90 caps 05/22/24 Unknown Rx release Allergy/AdvReac Type Severity Reaction Status Date / Time adhesive tape Allergy Rash Verified 09/16/24 06:52 Food Allergies: Uncoded Allergy Anaphylaxis Verified 09/16/24 06:52 morphine AdvReac Vomiting Verified 09/16/24 06:52 Family History Grandmother Hypertension Aunt Lupus Aunt Lupus Aunt Lupus Other Migraine Surgical History History of spinal surgery History of surgery on lower extremity History of surgical procedure Hx of hysterectomy Social History household members: spouse current occupational status: employed current occupation: [employer] Smoking Status: Former smoker quit date: 12/10/21 pack-years: 15 Electronic Cigarette Use: not used alcohol intake: current alcohol intake frequency: a few times a week substance use type: marijuana what type of physical activity do you participate in: none do you feel safe at home: Yes ROS ROS ED Constitutional Constitutional ED: Reports sweats; Denies chills or fever(s) Eyes Eyes: Denies blurry vision or change in vision ENT ENT ED: Denies ear pain, rhinorrhea or sore throat Cardiovascular Cardiovascular: Denies chest pain or palpitations Respiratory/Chest Respiratory/Chest: Denies cough or dyspnea Gastrointestinal Gastrointestinal: Denies abdominal pain, nausea or vomiting Musculoskeletal Musculoskeletal: Denies arthralgias or myalgias Integumentary Denies rash Neurologic Neurologic: Reports headache(s) and other Details: feeling shaky ; Denies weakness Psychiatric Psychiatric: Denies anxiety Hematologic/Lymphatic Hematologic/Lymphatic: Denies easy bleeding or easy bruising EXAM Physical Exam Const Vital Signs: 09/16/24 06:49 09/16/24 08:49 09/16/24 09:07 Temperature 98.1 F Temperature Source Oral Pulse Rate 76 59 L Respiratory Rate 20 H 15 Respiratory Effort Normal Non-Labored Respiratory Pattern Normal Blood Pressure 183/117 H 141/98 H Blood Pressure Mean 139 112 Pulse Ox 100 99 Oxygen Delivery Method Room Air Room Air 09/16/24 10:00 09/16/24 11:00 Temperature Temperature Source Pulse Rate 59 L 61 Respiratory Rate 18 14 Respiratory Effort Respiratory Pattern Blood Pressure 135/97 H 129/93 H Blood Pressure Mean 109 105 Pulse Ox 97 99 Oxygen Delivery Method Room Air Room Air Positive well nourished and well developed General Appearance ED: well developed and NAD HEENT Reports TM's clear and moist mucous membranes Negative for trauma Tympanic Membrane ED: Yes TM's clear Eyes PERRL and EOMs intact bilaterally Neck supple and no JVD Chest Wall inspection of chest normal and palpation of chest normal Resp normal respiratory effort and clear to auscultation bilaterally Cardio regular rate, regular rhythm and no murmurs GI normal to inspection, nondistended, normoactive bowel sounds and non-tender Extremity normal to inspection Extremity Narrative: 2+ DP and radial pulses present General Extremety ED: Negative for edema General Extremity: Negative for edema Neuro oriented x3, CN's II-XII intact bilaterally and no sensory deficits noted Sensorium / Orientation: alert Motor Exam: strength 5/5 throughout; Negative for general weakness Psych mental status grossly normal Skin no rashes or lesions noted and no wounds MDM MDM MDM Narrative Medical decision making narrative: Patient valuated for headache, feeling shaky, sweating and elevated blood pressure. Differential includes symptomatic hypertension, thyroid dysfunction, electrolyte derangement, BINTA, new onset heart failure (lower suspicion is has no crackles or signs of fluid overload on physical exam), urinary tract infection and ACS seems lower suspicion she is not any chest pain but will obtain screening EKG) as well as brain mass/intracranial hemorrhage or migraine. Patient given IV fluids, Tylenol and IV Reglan for symptoms. Blood pressure is downtrending upon arrival to the ER will monitor at this time. Patient is given IV fluids, Tylenol and Reglan in the emergency room with improvement of her blood pressure and symptoms. Blood pressure now 129/93. Workup largely unremarkable except for a TSH that is elevated at 7.16. Free T3-T4 is added on which are normal. I do not think patient is in any type of myxedema coma. Will have her PCP continue to monitor this. Chest x-ray viewed by myself as well as radiology does not show any acute process. CT of the brain does not show any acute process. At this time patient be discharged home. I do not think this is a hypertensive emergency or urgency. She will follow-up with her family doctor. She will keep a blood pressure log. Is given return precautions. Discharged home in stable condition. Lab Data Attestation: I reviewed the patient's lab results. Labs: Laboratory Results - last 24 hr 09/16/24 09/16/24 06:58 07:50 WBC 4.5 RBC 4.20 Hgb 13.9 Hct 41.8 MCV 99.5 H MCH 33.1 H MCHC 33.3 RDW Std Deviation 48.9 H RDW Coeff of Tania 13.4 Plt Count 159 MPV 11.8 Immature Gran % (Auto) 0.700 Neut % (Auto) 62.5 Lymph % (Auto) 18.4 L [place] % (Auto) 14.6 H Eos % (Auto) 2.9 Baso % (Auto) 0.9 Absolute Neuts (auto) 2.8 Absolute Lymphs (auto) 0.83 Nucleated RBC % 0 Sodium 137 Potassium 4.3 Chloride 104 Carbon Dioxide 20.8 L Anion Gap 12 BUN 9 Creatinine 0.73 Estim Creat Clear Calc 117.20 Est GFR (MDRD) Non-Af 101 BUN/Creatinine Ratio 12.1 Glucose 101 H Calcium 9.5 TSH 7.160 H Free T4 0.80 Free T3 pg/dL 3.0 Urine Color Yellow Urine Clarity Clear Urine pH 6.0 Ur Specific [place] 1.010 Urine Protein Negative Urine Glucose (UA) Normal Urine Ketones Negative Urine Occult Blood Negative Urine Nitrite Negative Urine Bilirubin Negative Urine Urobilinogen Normal Ur Leukocyte Esterase Negative Urine RBC 0 SEEN Urine WBC 0 SEEN Ur Squamous Epith Cells 0-5 SEEN Urine Bacteria 0 SEEN Urine Mucus 0 SEEN Radiography Diagnostic Testing: Clinical Impression(s) from Imaging Studies Brain CT 09/16/24 07:20 IMPRESSION: NORMAL NONCONTRAST HEAD CT. Reading Location: [place] [id number] Chest X-Ray 09/16/24 08:25 IMPRESSION: No acute cardiopulmonary process. Reading Location: [facility] Rhythm Strip Rhythm Strip: Sinus Rhythm Rate: 63 Ectopy: None EKG Initial EKG: Attestation: I personally reviewed and interpreted this EKG as follows: Interpretation: Sinus Rhythm Comments: Normal sinus rhythm at a rate of 63 bpm Normal axis Normal intervals Normal ST segment Discharge Plan Triage Chief Complaint: Hypertension ED Provider: Denise Perez Dx/Rx/DC Orders Clinical Impression: Elevated blood pressure reading without diagnosis of hypertension, Headache Instructions: ED Hypertension, To Be Confirmed, ED Pain, Acute, Uncertain Cause Prescriptions: No Action omeprazole 40 mg capsule,delayed release(DR/EC) 40 mg PO DAILY Qty: 90 1RF Rx Instructions: TAKE 1 CAPSULE BY MOUTH DAILY cyclobenzaprine 5 mg tablet 5 mg PO TID PRN (Reason: muscle spasm) Qty: 15 0RF naproxen sodium [Aleve] 220 mg Tablet 220 mg PO PRN PRN (Reason: Pain) Primary Care Provider: Ashely Steven Referrals: Ashely Steven MD [Primary Care Provider] - Activity Restrictions/Additional Instructions: Your workup today did show elevation of your TSH however your thyroid hormones (free T3 and T4) were normal which is consistent with normal thyroid function. Please continue to have this monitor with your primary care doctor. Your blood pressure normalized in the emergency room. Do not think you need to be started on blood pressure medication. In the meantime continue to push fluids. Follow-up with your family doctor as exact cause of your symptoms is not clear at this time. Print Language: Nepali Disposition Disposition: Home, Self Care
[2024-09-16] MEDS: 0.9% Normal Saline (1000mL) 1,000 ML 999 ML IV (07:41)
[2024-09-16 07:55] LABS: Mucous, Urine 0 SEEN /hpf (<or=2+); Red Blood Cells-Urine 0 SEEN /hpf (0-5)
[2024-09-16 07:58] LABS: Color, Urine Yellow (Yellow); Glucose, Dipstick Normal (Normal); Ketone-Dipstick Negative (Negative); Leukocyte Esterase-Dipstick Negative /ul (Negative); Nitrite-Dipstick Negative (Negative); Occult Blood-Urine Negative /ul (Negative); Protein-Dipstick Negative (Negative); Specific Gravity, Urine 1.010 (1.002-1.030); Urine Bilirubin Dipstick Negative (Negative)
[2024-09-16 08:05] LABS: Hematocrit 41.8 % (37-47); Hemoglobin 13.9 g/dL (12.0-15.0); Immature Granulocytes Count 0.030 X10^3/uL (0.0-0.0); Mean Corp Hgb Conc 33.3 g/dL (32-36); Mean Corpuscular Volume 99.5 fL (81-99); Mean Platelet Vol. 11.8 fl (6.2-12.0); NRBC Flagged by Analyzer 0 % (0-5); Platelet Count 159 K/mm3 (150-450); RBC Distribution Width CV 13.4 % (11.6-14.6); RBC Distribution Width SD 48.9 fl (35.1-43.9); Red Blood Count 4.20 M/mm3 (4.2-5.4); White Blood Count 4.5 K/mm3 (4.4-11.0)
[2024-09-16 08:09] LABS: Squamous Epithelial Cells - UA 0-5 SEEN /hpf (5-10)
--- NOTE | 2024-09-16 08:25 | RAD_ITS ---
EXAM: XR Chest, 2 Views CLINICAL INDICATION: SOB TECHNIQUE: Frontal and lateral views of the chest. COMPARISON: No relevant prior studies available. FINDINGS: LUNGS AND PLEURAL SPACES: Unremarkable. No consolidation. No pneumothorax. HEART: Unremarkable. No cardiomegaly. MEDIASTINUM: Unremarkable. Normal mediastinal contour. BONES/JOINTS: Unremarkable. No acute fracture. RAD/Chest PA and Lateral IMPRESSION: No acute cardiopulmonary process. Reading Location: [facility]
[2024-09-16 08:49] VITALS: BP 141/98; PULSE 59; RESP 15; O2SAT 99
[2024-09-16 09:26] LABS: Anion Gap 12 (5-15); BUN 9 mg/dL (4-19); BUN/Creat Ratio 12.1 RATIO (10-20); Calcium,Total 9.5 mg/dL (7.6-11.0); Carbon Dioxide 20.8 mmol/L (21.0-32.0); Chloride 104 mmol/L (98-108); Estimated Creatinine Clearance 117.20 ml/min (50-250); Glucose 101 mg/dL (70-99); Potassium 4.3 mmol/L (3.3-5.1)
[2024-09-16 10:00] VITALS: BP 135/97; PULSE 59; RESP 18; O2SAT 97
[2024-09-16 11:00] VITALS: BP 129/93; PULSE 61; RESP 14; O2SAT 99
[2024-09-16 11:10] LABS: Free T3 3.0 pg/mL (2.18-3.98)
[2024-09-16 11:46] VITALS: BP 129/93; PULSE 61; RESP 14; TEMP 36.8; O2SAT 99
== END 2024-09-16 11:47 | disposition home or self-care (01) ==
PROVIDERS: Emergency Provider Emergency Medicine; PCP Internal Medicine; Visit Provider Emergency Medicine
DX: R03.0 Elevated blood-pressure reading, without diagnosis of hypertension (principal); R51.9 Headache, unspecified; Z87.891 Personal history of nicotine dependence; K21.9 Gastro-esophageal reflux disease without esophagitis; F12.90 Cannabis use, unspecified, uncomplicated; Z90.710 Acquired absence of both cervix and uterus
CPT/HCPCS: 70450; 71046; 80048; 81001; 84439; 84443; 84481; 85025; 93005; 96361; 96374; 96376; 99283; A4216

== ENCOUNTER → 2025-01-09 | Outpatient (CLI) | payer BC, SELFPAY ==
--- NOTE | 2025-01-09 14:37 | SP.MBSS_ITS ---
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 Baseline MBSS on 07/06/21 revealed mild oropharyngeal dysphagia (R13.12) with recommendations for a regular diet and thin liquids, small bites/sips, slow rate, and upright positioning during and after meals. Repeat MBSS on 12/12/21 and 11/27/22 showed stable swallow function with similar findings and recommendations. The patient denies odynophagia, dysgeusia, chewing or swallowing difficulty, and any history of pneumonia since prior MBSS. She reports she is hoping this will be her final study post-treatment. Current Diet Ordered: Regular textures / Thin Liquids Mental Status: WNL Respiratory Status: Oxygenating on Room Air Penetration-Aspiration Scale Penetration-Aspiration Scale: OBJECTIVE ASSESSMENT OF SWALLOW FUNCTION (QUANTITATIVE ? PER TRIAL): PENETRATION / ASPIRATION SCALE (SUAREZ): 1 = does not enter airway 2 = enters airway/above vocal folds/ejected 3 = enters airway/above vocal folds/not ejected 4 = enters airway/contacts vocal folds/ejected 5 = enters airway/contacts vocal folds/not ejected 6 = enters airway/below vocal folds/ejected 7 = enters airway/below vocal folds/not ejected despite effort 8 = enters airway/below vocal folds/no effort VIDEOFLOROSCOPIC SCALE SCORE (SUAREZ): Grade I = aspiration of material that has penetrated into the laryngeal vestibule, intact cough reflex Grade II = aspiration < 10 % of the bolus, intact cough reflex Grade III = aspiration of < 10 % of the bolus, reduced cough reflex or aspiration of > 10 % of the bolus, intact cough reflex Grade IV = aspiration of > 10 % of the bolus, reduced cough reflex Penetration-Aspiration Scale Score Thin Liquid via teaspoon: Result: 2= enter airway/above vocal folds/ejected Thin Liquid via small single sip: cup: Result: 1= does not enter airway Thin Liquid via sequential sips: cup: Result: 2= enter airway/above vocal folds/ejected [place] Thick Liquid via small single sip: cup: Result: 1= does not enter airway Pudding: Result: 1= does not enter airway Cookie: Result: 1= does not enter airway Thin Liquid via small single sip: cup Trial 2: Result: 2= enter airway/above vocal folds/ejected Oral Phase Labial Seal: No Labial Escape Tongue Control During Bolus Hold: Cohesive bolus between tongue to palatal seal Bolus Preparation/Mastication: Timely and efficient chewing and mashing Bolus Transport/Lingual Motion: Slowed tongue motion Oral Residue: Trace residue lining oral structures Pharyngeal Phase Initiation of Pharyngeal Swallow: Bolus head in pyriforms Soft Palate Elevation: No bolus between soft palate and pharyngeal wall Laryngeal Elevation: Partial superior movement thyroid cart/partial apprx aryt- epig petiole Anterior Hyoid Excursion: Partial anterior movement Epiglottic Movement: Complete inversion Laryngeal Vestibule Closure at Height of Swallow: Incomplete; narrow column of air/contrast in laryngeal vestibule Pharyngeal Stripping Wave: Present - complete Pharyngoesophageal Segment Opening: Parital distension and partial duration; parital obstruction of flow Tongue Base Retraction: Trace column of contrast between tongue base & post. pharyngeal wall Pharyngeal Residue: Trace residue within or on pharyngeal structures Esophageal Phase Esophageal Clearance: Esophageal retention w/ retrograde flow below pharyngoesophageal seg. Diagnosis/Impression Diagnosis: MILD OROPHARYNGEAL DYSPHAGIA R13.12 .: The patient exhibits an adequate oral phase of swallowing. There is trace residue in the oral cavity which is cleared with a compensatory double swallow. During the pharyngeal phase, anterior hyoid excursion and laryngeal elevation/closure are reduced, contributing to delayed onset of the pharyngeal swallow and resulting in laryngeal penetration; this penetration was fully ejected. Trace residue is noted in the pyriform sinuses, which is cleared with use of the double swallow strategy. UES demonstrates decreased opening and partial distention, with accumulation of some residue?again cleared with a double swallow. No significant change in swallowing physiology is evident compared to the 2021 and 2022 studies. Recommendations Diet: Regular Textures and Thin Liquids Compensatory Strategies: Small Bites, Small Sips, Multiple Swallows, Alternate bites/solids and sips/liquids, Sitting upright and Remain sitting upright for 30 minutes after PO intake Recommend Repeat Modified Barium Swallow: TBD Need for Skilled Speech Therapy Services: No Education Completed: 1. Described result of evaluation. and 2. Pt understands evaluation & agrees with goals and treatment plan. Status Active ST Patient: Active Contact Information [facility] Speech Therapy:: Dee Blunt M.A., [facility] Speech-Language Pathologist [facility] [phone] FAX [phone] [email or web address] [address]
== END | disposition home or self-care (01) ==
LOC: RAD 12:24
PROVIDERS: PCP Internal Medicine; Referring Provider Student in an Organized Health Care Education/Training Program; Visit Provider Student in an Organized Health Care Education/Training Program
DX: C08.9 Malignant neoplasm of major salivary gland, unspecified (principal)
CPT/HCPCS: 74230; 92611